=== PATIENT | male | born 1955 | race Caucasian/White ===

== ENCOUNTER 2020-07-04 13:41 | Inpatient (IN) | payer OTHER ==
[2020-07-04] MEDS ORDERED: NA CHLORIDE 0.9% 500 ML ONE (14:00)
[2020-07-04] MEDS ORDERED: FENTANYL CITR 100 MCG/2 ML ONE ×3 (14:00→18:45)
[2020-07-04] MEDS ORDERED: ONDANSETRON 4 MG/2 ML VIAL ONE (14:00)
[2020-07-04 14:02] LABS: Absolute Lymphocytes (CBC) 1.9 K/uL (0.7-4.9); Basophils % 0.6 % (0-1.3); Hematocrit 45.2 % (39.6-49.0); MPV 8.9 fL (7.6-11.3); RBC Red Blood Cell Count 4.42 M/uL (4.33-5.43)
[2020-07-04 14:04] LABS: Protime INR 1.18
[2020-07-04 14:21] LABS: ALT/SGPT 131 U/L (12-78); AST/SGOT 166 U/L (15-37); Albumin 3.8 g/dL (3.4-5.0); Alkaline Phosphatase 87 U/L (45-117); BUN Blood Urea Nitrogen 6 mg/dL (7-18); Bicarbonate 23 mmol/L (21-32); Bilirubin Direct 0.9 mg/dL (0-0.2); Bilirubin Total 2.8 mg/dL (0.2-1.0); Glucose Level 146 mg/dL (74-106); Magnesium 1.8 mg/dL (1.8-2.4); NT PRO-BNP 407 pg/mL (<125); Potassium 3.2 mmol/L (3.5-5.1); Protein, Total 7.1 g/dL (6.4-8.2); Sodium Level 136 mmol/L (136-145); Troponin (Emerg Dept Use Only) < 0.02 ng/mL (0.0-0.045)
--- NOTE | 2020-07-04 14:34 | RAD REPORT ---
EXAM DESCRIPTION: RAD - Chest Single View - 07/04/2020 2:01 pm CLINICAL HISTORY: syncope Chest pain. COMPARISON: Chest Pa And Lat (2 Views) dated 12/26/2018; CHEST PA AND LAT 2 VIEW dated 03/31/2011 FINDINGS: Portable technique limits examination quality. Mild linear subsegmental atelectasis is present left lung base. The lungs are otherwise clear. The he art is normal in size. No displaced fractures.
[2020-07-04] MEDS ORDERED: NA CHLORIDE 0.9% 1,000 ML ONE (14:37)
--- NOTE | 2020-07-04 14:40 | RAD REPORT ---
EXAM DESCRIPTION: CT - CTHCSPWOC - 07/04/2020 2:29 pm CLINICAL HISTORY: Trauma, head and neck injury. syncope;Pain COMPARISON: Angio Aorta For Dissection dated 07/04/2020 TECHNIQUE: Axial 5 mm thick images of the head were obtained. Axial 2 mm thick images of the cervical spine were obtained with sagittal and coronal reconstruction images generated and reviewed. All CT scans are performed using dose optimization technique as appropriate and may include automated exposure control or mA/KV adjustment according to patient size. FINDINGS: CT HEAD WITHOUT CONTRAST: No acute hemorrhage, hydrocephalus or extra-axial collection is identified.Mild generalized brain atr ophy.No areas of brain edema or midline shift. Mild mucoperiosteal thickening in the inferior left maxillary antrum. The paranasal sinuses mastoids are otherwise clear.The calvarium is intact. CT CERVICAL SPINE WITHOUT CONTRAST: No fracture or subluxation.Mild mid and lower cervical degenerative changes.No prevertebral soft tiss ues swelling is identified. IMPRESSION: No acute intracranial or cervical spine findings.
--- NOTE | 2020-07-04 14:47 | RAD REPORT ---
EXAM DESCRIPTION: CT - Angio Aorta For Dissection - 07/04/2020 2:29 pm CLINICAL HISTORY: Chest pain radiating to the back. Low back pain;Abdominal distention COMPARISON: No comparisons TECHNIQUE: CT angiography of the aorta was performed with MIPs. All CT scans are performed using dose optimization technique as appropriate and may include automated exposure control or mA/KV adjustment according to patient size. FINDINGS: A left aortic arch is present with normal branching pattern of the great vessels.No acute aortic finding is seen such as aneurysm, penetrating ulcer or dissection. The celiac axis, SMA, JT and renal arteries are widely patent. No evidence of pulmonary embolism. Mild diffuse COPD is present with linear atelectasis in both lung bases. Diffuse fatty liver.Cholelithiasis.The spleen, pancreas, adrenal glands and kidneys are within normal limits for arterial phase imaging. No bowel obstruction, free fluid or abscess.Normal appendix.No pathologic enlarged lymphadenopathy id entified. Several mild wedge compression deformities are present in spine, including T12, L2 and L4 levels. The se are likely acute to subacute in timeframe. No canal compromise. IMPRESSION: No acute aortic finding is demonstrated. Cholelithiasis. Several mild compression deformities are noted, affecting T12, L2 and L4 levels. Vertebral body heigh t loss is estimated at 15-20% and no canal compromise suspected. These are probably acute or subacute in timeframe.
[2020-07-04] MEDS ORDERED: KCL 20 MEQ/100 mL IVPB 20 MEQ/100 ML BAG IV ONE (16:10)
--- NOTE | 2020-07-04 17:35 | EDPHYS ---
Physician Documentation [facility] Name: Rafa Minaya Age: 64 yrs Sex: Male : 1955 Arrival Date: 07/04/2020 Time: 13:41 Bed 7 Private MD: ED Physician Danny Fisher HPI: 07/04 13:53 This 64 yrs old Male presents to ER via EMS with complaints of Altered Mental kdr Status. 13:53 The patient presents with confusion, decreased mental status, decreased responsiveness. kdr Onset: The symptoms/episode began/occurred at an unknown time. he patient sates that he was at his mothers and went out to his truck at about 12:30 and then does not know what happened. He was found down on all fours on the ground. HE was initially disoriented and HR of 140 at the scene. Was given fluid by EMS and initial VS in ED much better and patient alert and oriented appropriate for age. he appears in moderate distress and is c/o low back pain. His abdomen is firm and diffusely tender, BS diminished. Possible causes: head injury, Aortic dissection. Associated signs and symptoms: Pertinent positives: abdominal pain, confusion, nausea, LOC. Current symptoms: In the emergency department the patient's symptoms have improved, mildly. Patient's baseline: Neuro: alert and fully oriented, Motor: no deficits, Ambulation: walks without assistance. The patient has not experienced similar symptoms in the past. It is unknown whether or not the patient has recently seen a physician. Historical: - Allergies: 13:52 No Known Allergies; tw2 - Home Meds: 13:52 Lumigan 0.01 % ophthalmic drop [Active]; tw2 - PMHx: 13:52 Glaucoma; tw2 - Immunization history:: Adult Immunizations. - Social history:: Smoking status: . ROS: 13:53 Constitutional: Negative for fever, chills, and weight loss, Eyes: Negative for injury, kdr pain, redness, and discharge, ENT: Negative for injury, pain, and discharge, Neck: Negative for injury, pain, and swelling, Cardiovascular: Negative for chest pain, palpitations, and edema, Respiratory: Negative for shortness of breath, cough, wheezing, and pleuritic chest pain, Back: Negative for injury and pain, : Negative for injury, bleeding, discharge, and swelling, MS/Extremity: Negative for injury and deformity, Skin: Negative for injury, rash, and discoloration, Psych: Negative for depression, anxiety, suicide ideation, homicidal ideation, and hallucinations, Allergy/Immunology: Negative for hives, rash, and allergies, Endocrine: Negative for neck swelling, polydipsia, polyuria, polyphagia, and marked weight changes, Hematologic/Lymphatic: Negative for swollen nodes, abnormal bleeding, and unusual bruising. 13:53 Abdomen/GI: Positive for abdominal distension. 13:53 Neuro: Positive for altered mental status, dizziness, loss of consciousness, syncope, weakness. Exam: 13:53 Constitutional: This is a well developed, well nourished patient who is awake, alert, kdr and in moderate distress. Head/Face: Normocephalic, atraumatic. Eyes: Pupils equal round and reactive to light, extra-ocular motions intact. Lids and lashes normal. Conjunctiva and sclera are non-icteric and not injected. Cornea within normal limits. Periorbital areas with no swelling, redness, or edema. Neck: Trachea midline, no thyromegaly or masses palpated, and no cervical lymphadenopathy. Supple, full range of motion without nuchal rigidity, or vertebral point tenderness. No Meningismus. Chest/axilla: Normal chest wall appearance and motion. Nontender with no deformity. No lesions are appreciated. Cardiovascular: Regular rate and rhythm with a normal S1 and S2. No gallops, murmurs, or rubs. Normal PMI, no JVD. No pulse deficits. Respiratory: Lungs have equal breath sounds bilaterally, clear to auscultation and percussion. No rales, rhonchi or wheezes noted. No increased work of breathing, no retractions or nasal flaring. Back: No spinal tenderness. No costovertebral tenderness. Full range of motion. Skin: Warm, dry with normal turgor. Normal color with no rashes, no lesions, and no evidence of cellulitis. MS/ Extremity: Pulses equal, no cyanosis. Neurovascular intact. Full, normal range of motion. Psych: Awake, alert, with orientation to person, place and time. Behavior, mood, and affect are within normal limits. 13:53 Abdomen/GI: Inspection: distension, that is moderate, obese Bowel sounds: diminished, in all quadrants, Palpation: soft, mild abdominal tenderness, in the abdomen diffusely. 19:28 ECG was reviewed by the Attending Physician. kdr Vital Signs: 13:43 BP 116 / 81; Pulse 94; Resp 22; Pulse Ox 100% on 2 lpm NC; Weight 99.79 kg (R); Height hb 6 ft. 2 in. (187.96 cm); Pain 9/10; 13:46 Temp 98.5(O); tw2 15:00 BP 120 / 82; Pulse 102; Resp 18; Pulse Ox 97% ; Pain 5/10; hb 16:04 BP 143 / 97; Pulse 102; Resp 17; Pulse Ox 99% on R/A; hb 17:13 BP 125 / 94; Pulse 95; Resp 24; Pulse Ox 100% on R/A; tw2 18:19 BP 130 / 88; Pulse 92; Resp 15; Pulse Ox 99% on R/A; hb 19:00 BP 136 / 93; Pulse 91; Resp 18; Pulse Ox 100% on 5 lpm NC; ll2 19:37 BP 126 / 71; Pulse 91; Resp 25; Pulse Ox 99% on R/A; Pain 5/10; ll2 13:43 Body Mass Index 28.25 (99.79 kg, 187.96 cm) hb MDM: 17:35 Patient medically screened. kdr 17:35 Data reviewed: vital signs, nurses notes, lab test result(s), radiologic studies. kdr Counseling: I had a detailed discussion with the patient and/or guardian regarding: the historical points, exam findings, and any diagnostic results supporting the discharge/admit diagnosis, lab results, radiology results, the need for further work-up and treatment in the hospital. ED course: Will admit for pain control and syncope evaluation. 07/04 13:43 Order name: Basic Metabolic Panel; Complete Time: 14:49 tw2 07/04 13:43 Order name: CBC with Diff; Complete Time: 14:49 tw2 07/04 13:43 Order name: LFT's; Complete Time: 14:49 tw2 07/04 13:43 Order name: Magnesium; Complete Time: 14:49 tw2 07/04 13:43 Order name: NT PRO-BNP; Complete Time: 14:49 tw2 07/04 13:43 Order name: PT-INR; Complete Time: 14:49 tw2 07/04 13:43 Order name: Troponin (emerg Dept Use Only); Complete Time: 14:49 tw2 07/04 13:43 Order name: XRAY Chest (1 view); Complete Time: 14:49 tw2 07/04 13:49 Order name: CT Aorta for Dissection; Complete Time: 14:49 kdr 07/04 13:50 Order name: CT Head C Spine; Complete Time: 14:49 kdr 07/04 13:51 Order name: ETOH Level; Complete Time: 14:49 kdr 07/04 13:51 Order name: UDS kdr 07/04 13:43 Order name: EKG; Complete Time: 13:43 tw2 07/04 13:43 Order name: Cardiac monitoring; Complete Time: 13:53 tw2 07/04 13:43 Order name: EKG - Nurse/Tech; Complete Time: 14:00 tw07/04 13:43 Order name: IV Saline Lock; Complete Time: 13:54 tw2 07/04 13:43 Order name: Labs collected and sent; Complete Time: 13:54 tw2 07/04 13:43 Order name: O2 Per Protocol; Complete Time: 13:54 tw2 07/04 13:43 Order name: O2 Sat Monitoring; Complete Time: 13:54 tw2 EC:28 Rate is 97 beats/min. Rhythm is regular, Normal Sinus Rhythm with No ectopy. QRS Gates kdr is Normal. AR interval is normal. Clinical impression: Normal ECG. Administered Medications: 13:53 Drug: fentaNYL (PF) 50 mcg Route: IVP; Site: left forearm; hb 14:50 Follow up: Response: No adverse reaction hb 13:53 Drug: Zofran (Ondansetron) 4 mg Route: IVP; Site: left forearm; hb 14:51 Follow up: Response: No adverse reaction hb 13:53 Drug: NS 0.9% 500 ml Route: IV; Rate: bolus; Site: left forearm; hb 14:30 Follow up: Response: No adverse reaction; IV Status: Completed infusion; IV Intake: hb 500ml 14:50 Drug: NS 0.9% 1000 ml Route: IV; Rate: 125 ml/hr; Site: left forearm; hb 14:58 Drug: fentaNYL (PF) 50 mcg Route: IVP; Site: left forearm; hb 15:30 Follow up: Response: No adverse reaction hb 16:14 Drug: Potassium Chloride 20 mEq Route: IV; Rate: calculated rate; Site: left forearm; tw2 18:15 Follow up: Response: No adverse reaction; IV Status: Completed infusion tw2 18:39 Drug: fentaNYL (PF) 50 mcg Route: IVP; Site: left forearm; tw2 19:36 Follow up: Response: No adverse reaction; Pain is decreased; RASS: Alert and Calm (0) ll2 Disposition: 07/04/20 17:35 Hospitalization ordered by Pavan Brown for Observation. Preliminary diagnosis are Altered mental status, unspecified, Wedge compression fracture of unspecified lumbar vertebra - L 2/4, Wedge compression fracture of unspecified thoracic vertebra - T 12. - Bed requested for Telemetry/MedSurg (observation). - Status is Observation. rr5 - Condition is Fair. - Problem is new. - Symptoms have improved. Signatures: Dispatcher [employer] EDCarlee Olmos RN RN dw Danny Fisher MD MD kdr Michelle Guardado RN RN Lisbet Manning RN RN tw2 Pavan Shelby RN RN rr5 Kaylene Faria RN ll2 Corrections: (The following items were deleted from the chart) 20:00 17:35 Hospitalization Ordered by Pavan Brown MD for Observation. Preliminary dw diagnosis is Altered mental status, unspecified; Wedge compression fracture of unspecified lumbar vertebra - L 2/4; Wedge compression fracture of unspecified thoracic vertebra - T 12. Bed requested for Telemetry/MedSurg (observation). Status is Observation. Condition is Fair. Problem is new. Symptoms have improved. kdr 22:22 20:00 07/04/2020 17:35 Hospitalization Ordered by Pavan Brown MD for Observation. rr5 Preliminary diagnosis is Altered mental status, unspecified; Wedge compression fracture of unspecified lumbar vertebra - L 2/4; Wedge compression fracture of unspecified thoracic vertebra - T 12. Bed requested for Telemetry/MedSurg (observation). Status is Observation. Condition is Fair. Problem is new. Symptoms have improved. dw
--- NOTE | 2020-07-04 17:35 | ER ---
Nurse's Notes [facility] Name: Rafa Minaya Age: 64 yrs Sex: Male : 1955 Arrival Date: 07/04/2020 Time: 13:41 Bed 7 Private MD: Diagnosis: Altered mental status, unspecified;Wedge compression fracture of unspecified lumbar vertebra-L 2/4;Wedge compression fracture of unspecified thoracic vertebra-T 12 Presentation: 07/04 13:43 Chief complaint: EMS states: his mother called us and said she seen him go down in the tw2 yard, like just fall, but when we arrived he was on the ground in a side lying position a little disoriented, diaphoretic and soaking wet from sweat, we finally convinced him to come in, initially HR 130's, 89% ra, we started a line gave 100 ml NS, latest vitals was 118/84 88HR, 18, 95% on 2 L nc, now oriented x3. Coronavirus screen: At this time, the client does not indicate any symptoms associated with coronavirus-19. Ebola Screen: Patient denies travel to an Ebola-affected area in the 21 days before illness onset. Initial Sepsis Screen: Does the patient meet any 2 criteria? No. Patient's initial sepsis screen is negative. Does the patient have a suspected source of infection? No. Patient's initial sepsis screen is negative. Risk Assessment: Do you want to hurt yourself or someone else? Patient reports no desire to harm self or others. Onset of symptoms was July 04, 2020. 13:43 Method Of Arrival: EMS: [facility] tw2 13:43 Acuity: NORMAN 2 hb 13:50 Note pt did have episode of incontinence of urine prior to our arrival. tw2 Triage Assessment: 13:49 General: Appears uncomfortable, Behavior is calm, cooperative, appropriate for age. tw2 Pain: Complains of pain in left low back. Neuro: Level of Consciousness is awake, alert, obeys commands, Oriented to person, place, situation. Cardiovascular:. Derm: Skin is diaphoretic. Historical: - Allergies: 13:52 No Known Allergies; tw2 - Home Meds: 13:52 Lumigan 0.01 % ophthalmic drop [Active]; tw2 - PMHx: 13:52 Glaucoma; tw2 - Immunization history:: Adult Immunizations. - Social history:: Smoking status: . Screenin:52 Abuse screen: Denies threats or abuse. Nutritional screening: No deficits noted. tw2 Tuberculosis screening: No symptoms or risk factors identified. Fall Risk None identified. Assessment: 14:00 General: Appears in no apparent distress. uncomfortable, Behavior is cooperative, hb anxious, restless. Pain: Pain currently is 9 out of 10 on a pain scale. Neuro: Level of Consciousness is awake, alert, obeys commands, Oriented to person, place, time, situation. Cardiovascular: Capillary refill < 3 seconds Rhythm is sinus tachycardia. Respiratory: Respiratory effort is even, unlabored, Respiratory pattern is regular, symmetrical. GI: No signs and/or symptoms were reported involving the gastrointestinal system. : No signs and/or symptoms were reported regarding the genitourinary system. EENT: No signs and/or symptoms were reported regarding the EENT system. Derm: Skin is clammy, Skin is pale, Skin temperature is warm. Musculoskeletal: Reports low back pain that radiates to abdomen. 15:02 Reassessment: Pt grimacing, grunting, holding breath, reports pain 5/10. Dr. Fisher hb notified, repeat fentanyl administered as ordered. 16:04 Reassessment: Patient appears in no apparent distress at this time. Patient and/or hb family updated on plan of care and expected duration. Pain level reassessed. Patient is alert, oriented x 3, equal unlabored respirations, skin warm/dry/pink. 16:14 Reassessment: hospitalist Dr. Tiffany Brown at bedside at this time. tw2 17:14 Reassessment: Patient appears in no apparent distress at this time. Patient and/or tw2 family updated on plan of care and expected duration. Pain level reassessed. Patient is alert, oriented x 3, equal unlabored respirations, skin warm/dry/pink. 18:19 Reassessment: Patient appears in no apparent distress at this time. Patient and/or hb family updated on plan of care and expected duration. Pain level reassessed. Patient is alert, oriented x 3, equal unlabored respirations, skin warm/dry/pink. 18:40 Reassessment: pt c/o lower back pain, Dr. Fisher notified at this time. medicated as tw2 ordered. 19:36 Pain: Pain currently is 5 out of 10 on a pain scale. ll2 Vital Signs: 13:43 BP 116 / 81; Pulse 94; Resp 22; Pulse Ox 100% on 2 lpm NC; Weight 99.79 kg (R); Height hb 6 ft. 2 in. (187.96 cm); Pain 9/10; 13:46 Temp 98.5(O); tw2 15:00 BP 120 / 82; Pulse 102; Resp 18; Pulse Ox 97% ; Pain 5/10; hb 16:04 BP 143 / 97; Pulse 102; Resp 17; Pulse Ox 99% on R/A; hb 17:13 BP 125 / 94; Pulse 95; Resp 24; Pulse Ox 100% on R/A; tw2 18:19 BP 130 / 88; Pulse 92; Resp 15; Pulse Ox 99% on R/A; hb 19:00 BP 136 / 93; Pulse 91; Resp 18; Pulse Ox 100% on 5 lpm NC; ll2 19:37 BP 126 / 71; Pulse 91; Resp 25; Pulse Ox 99% on R/A; Pain 5/10; ll2 13:43 Body Mass Index 28.25 (99.79 kg, 187.96 cm) hb ED Course: 13:41 Patient arrived in ED. hb 13:42 Danny Fisher MD is Attending Physician. kdr 13:42 Placed in gown. Bed in low position. Side rails up X2. radiation monitor on. Pulse ox on. tw2 NIBP on. Warm blanket given. 13:49 Triage completed. tw2 13:49 Arm band placed on. EKG completed in triage. Results shown to MD. tw2 13:50 Inserted saline lock: 20 gauge in left forearm, using aseptic technique. ,using aseptic tw2 technique. AMARA Martinez Blood collected. 13:54 XRAY Chest (1 view) Sent. hb 14:01 XRAY Chest (1 view) In Process Unspecified. EDMS 14:03 Michelle Guardado, AMARA is Primary Nurse. hb 14:08 EKG done, by ED staff, reviewed by Danny Fisher MD. em1 14:29 CT Aorta for Dissection In Process Unspecified. EDMS 14:29 CT Head C Spine In Process Unspecified. EDMS 17:33 Pavan Brown MD is Hospitalizing Provider. kdr 19:10 Report given to AMARA Browne and AMARA Liao. tw2 19:16 Diet: Patient given water. ll2 21:43 No provider procedures requiring assistance completed. Patient admitted, IV remains in rr5 place. intact, No redness/swelling at site. Administered Medications: 13:53 Drug: fentaNYL (PF) 50 mcg Route: IVP; Site: left forearm; hb 14:50 Follow up: Response: No adverse reaction hb 13:53 Drug: Zofran (Ondansetron) 4 mg Route: IVP; Site: left forearm; hb 14:51 Follow up: Response: No adverse reaction hb 13:53 Drug: NS 0.9% 500 ml Route: IV; Rate: bolus; Site: left forearm; hb 14:30 Follow up: Response: No adverse reaction; IV Status: Completed infusion; IV Intake: hb 500ml 14:50 Drug: NS 0.9% 1000 ml Route: IV; Rate: 125 ml/hr; Site: left forearm; hb 14:58 Drug: fentaNYL (PF) 50 mcg Route: IVP; Site: left forearm; hb 15:30 Follow up: Response: No adverse reaction hb 16:14 Drug: Potassium Chloride 20 mEq Route: IV; Rate: calculated rate; Site: left forearm; tw2 18:15 Follow up: Response: No adverse reaction; IV Status: Completed infusion tw2 18:39 Drug: fentaNYL (PF) 50 mcg Route: IVP; Site: left forearm; tw2 19:36 Follow up: Response: No adverse reaction; Pain is decreased; RASS: Alert and Calm (0) ll2 Intake: 14:30 IV: 500ml; Total: 500ml. hb Outcome: 17:35 Decision to Hospitalize by Provider. kdr 21:43 Admitted to Med/surg accompanied by tech, via stretcher, room 222, with oxygen, with rr5 chart, Report called to jenny 21:43 Condition: stable 21:43 Instructed on the need for admit. 22:22 Patient left the ED. rr5 Signatures: Dispatcher [employer] EDMS Danny Fisher MD MD kdr Martinez, Eric em1 Michelle Guardado RN RN hb Lisbet Manning RN RN tw2 Pavan Shelby RN RN rr5 [place], Kaylene, RN RN ll2 Corrections: (The following items were deleted from the chart) 14:06 13:43 BP 116 / 81; Pulse 94bpm; Resp 16bpm; Pulse Ox 100% 2 lpm Nasal Cannula; 99.79 kg hb Reported; Height 6 ft. 2 in.; BMI: 28.2; Pain 9/10; tw2 16:04 13:43 Acuity: NORMAN 3 tw2 hb
--- NOTE | 2020-07-04 19:51 | P.HP ---
Certification for Inpatient Patient admitted to: Observation With expected LOS: <2 Midnights Practitioner: I am a practitioner with admitting privileges, knowledge of patient current condition, hospital course, and medical plan of care. Services: Services provided to patient in accordance with Admission requirements found in Title 42 Section 412.3 of the Code of Federal Regulations Patient History Date of Service: 07/04/20 Reason for admission: syncope History of Present Illness: 64yo male with PMH: glaucoma, was brought to ED by EMS after syncopal episode. Patient was at family members house visiting, and had syncopal episode shortly after getting in his truck to leave. He believes he was passed out in the truck for 30min to 1 hours, woke soaked in his sweat. Truck was outside in the heat, and he had not turned it on yet. No prodromal symptoms, no palpitations, no chest pain, did not lose bowel/bladder control, no weakness/numbness/tingling, he did bite his lower lip. He states next thing he remembers he was on ground beside truck surrounding by EMS and his mother. He was having severe lower back pain, he believes he fell from his truck / was dropped when someone tried to open the door when he was passed out. No history of prior syncope. Does have remote episode of seizure x1 when he was "very dehydrated" many many years ago. Back pain is located "~4-6 inches above belt line, on both sides", very sharp, 5/10 after fentanyl. He states nearly 2-3 weeks ago he sprayed ~5gallons of herbicide without a mask/respirator and the wind occasionally blew the mist towards him. Since then, he has been feeling very fatigued, with intermittent chills, and decreased PO intake. In the ED, CT head: negative, CT thoracic aneurysm: Several mild compression d eformities are noted, affecting T12, L2 and L4 levels. Vertebral body height loss is estimated at 15-20% and no canal compromise suspected. These are probably acute or subacute in timeframe. CXR: mild atelectasis, EKG: sinus Allergies No Known Allergies Allergy (Unverified 07/04/20 18:33) - Past Medical/Surgical History -: Glaucoma -: Inguinal hernia -: L knee - meniscus repair - Family History father -: Heart disease (CHF) - Social History Smoking Status: Former smoker Alcohol use: Yes Caffeine use: Yes Place of Residence: Home Review of Systems General: Chills, Weakness Eyes: Unremarkable ENT: Unremarkable Respiratory: Unremarkable Cardiovascular: Unremarkable Gastrointestinal: Unremarkable Genitourinary: Unremarkable Musculoskeletal: Back Pain Integumentary: Unremarkable Neurological: As per HPI Physical Examination - Physical Exam General: Alert, Mild distress (in pain) HEENT: Atraumatic, PERRLA, EOMI Neck: Supple, No LAD Respiratory: Clear to auscultation bilaterally, Normal air movement Cardiovascular: No edema, Regular rate/rhythm, Normal S1 S2 Gastrointestinal: Normal bowel sounds, Soft and benign, Non-distended, No tenderness Musculoskeletal: Other (no tenderness on palpation of lower back) Integumentary: No rashes, No breakdown Neurological: Normal speech, Normal strength at 5/5 x4 extr (lower extremity exam limited due to back pain with movement), Sensation intact, Cranial nerves 3-12 intact, Normal affect - Studies Laboratory Data (last 24 hrs) 07/04/20 13:45: PT 13.9 H, INR 1.18 07/04/20 13:45: WBC 9.7, Hgb 15.8, Hct 45.2, Plt Count 143 L 07/04/20 13:45: Sodium 136, Potassium 3.2 L, BUN 6 L, Creatinine 1.58 H, Glucose 146 H, Magnesium 1.8, Total Bilirubin 2.8 H, AST 166 H, ALT 131 H, Alkaline Phosphatase 87 Assessment and Plan - Plan Syncope Back pain - compression fractures Glaucoma Syncope -unclear etiology, possibly in setting of dehydration -likely with herbicide toxicity 2-3 weeks ago that made him feel ill over the past 2-3 weeks, unlikely cause of syncope this far out, but likely contributed via decreased PO intake -CT brain negative -no prodrome, no palpitations, non-exertional -will monitor on telemetry -IVF at 175 ml/hr overnight -TTE ordered -unable to perform orthostatics secondary to pain -remote h/o seizure but this episode doesn't seem seizure-like Back pain, Compression fractures -appear acute/subacute on CT -likely from fall from truck -neuro exam normal -pain control with norco & morphine for now, adjust as needed Glaucoma -continue home eye drops Dispo: anticipate discharge tomorrow if pain controlled and pending syncope workup - - Advance Directives Does patient have a Living Will: No Does patient have a Durable POA for Healthcare: No - Code Status/Comfort Care Code Status: Full Code Time Spent Managing Pts Care (In Minutes): 55
[2020-07-04] MEDS ORDERED: ONDANSETRON 4 MG/2 ML VIAL IV PRN (22:39)
[2020-07-04] MEDS: NA CHLORIDE 0.9% 1,000 ML IV SCH (23:04)
[2020-07-04 23:19] LABS: Thyroid Stimulating Hormone 0.742 uIU/mL (0.360-3.740); Troponin I < 0.02 ng/mL (0.0-0.045)
[2020-07-04 23:25] VITALS: BMI 28.2
[2020-07-04] MEDS: MORPHINE 4 MG/ML SYR IV PRN (23:44)
[2020-07-05] MEDS: HYDROCODONE/APAP 10/325 TAB PO PRN ×4 (02:08→23:36)
[2020-07-05 03:21] LABS: Urine Appearance CLEAR; Urine Blood NEGATIVE (NEG); Urine Color DK YELLOW; Urine Glucose NEGATIVE (NEG); Urine Protein TRACE (NEG); Urine Specific Gravity >=1.030 (1.005-1.030)
[2020-07-05 03:30] LABS: Urine Microscopic Reflex ORDER UMIC
[2020-07-05 03:31] LABS: Barbiturates NEGATIVE (NEGATIVE); Benzodiazepines NEGATIVE (NEGATIVE); Cocaine NEGATIVE (NEGATIVE); METHAMPHETAM NEGATIVE (NEGATIVE); Methadone NEGATIVE (NEGATIVE); Opiates POSITIVE (NEGATIVE); Phencyclidine NEGATIVE (NEGATIVE); THC Cannibis NEGATIVE (NEGATIVE)
[2020-07-05 03:48] LABS: Urine Bacteria >50 /HPF (NONE SEEN); Urine Culture Reflex Order REFLEXED; Urine RBC <5 /HPF (NONE SEEN)
[2020-07-05 04:06] LABS: Urine Bilirubin 2+ (NEG)
[2020-07-05] MEDS: NA CHLORIDE 0.9% 1,000 ML IV SCH ×5 (04:55→23:36)
[2020-07-05 05:01] LABS: Albumin 3.2 g/dL (3.4-5.0); Magnesium 1.9 mg/dL (1.8-2.4); Potassium 3.6 mmol/L (3.5-5.1); Protein, Total 6.2 g/dL (6.4-8.2)
[2020-07-05 05:14] LABS: Absolute Lymphocytes (CBC) 0.7 K/uL (0.7-4.9); Basophils % 0.3 % (0-1.3); Hematocrit 39.2 % (39.6-49.0); Lymphocytes % 9.4 % (15.3-44.8); MPV 8.7 fL (7.6-11.3); RBC Red Blood Cell Count 3.79 M/uL (4.33-5.43)
--- NOTE | 2020-07-05 05:47 | EKG ---
Test Date: 2020-07-04 Test Time: 13:59:36 Email Engineer: MENG MEASUREMENT RESULTS: Intervals: Rate: 97 IA: 146 QRSD: 86 QT: 364 QTc: 462 [place]: P: 63 IA: 146 QRS: 56 T: 41 INTERPRETIVE STATEMENTS: Normal sinus rhythm Normal ECG Compared to ECG 04/08/2011 12:05:42 No significant changes Electronically Signed On 07-05-20 05:45:19 CDT by Kulwant Cárdenas
[2020-07-05] MEDS: MORPHINE 4 MG/ML SYR IV PRN ×2 (06:41→10:21)
[2020-07-05 09:50] LABS: Urine White Blood Cell Casts OK
[2020-07-05 09:51] LABS: Blood Morphology Comment NOT SEEN (NOT SEEN); Platelet Estimate DECR
--- NOTE | 2020-07-05 10:11 | P.PN ---
Subjective Date of Service: 07/05/20 Chief Complaint: syncope Subjective: No new changes Review of Systems 10-point ROS is otherwise unremarkable Physical Examination - Vital Signs Temperature: 97.0 F Blood Pressure: 125/67 Pulse: 70 Respirations: 14 Pulse Ox (%): 99 - Physical Exam General: Alert, In no apparent distress HEENT: Atraumatic, Normocephalic Neck: Supple, 2+ carotid pulse no bruit Respiratory: Clear to auscultation bilaterally Cardiovascular: Normal pulses, Regular rate/rhythm Capillary refill: <2 Seconds Gastrointestinal: Soft and benign, W/out hepatosplenomegaly Musculoskeletal: No clubbing, No swelling Integumentary: No rashes Neurological: Normal speech, Other (Intractable back pain) Lymphatics: No axilla or inguinal lymphadenopathy - Studies Laboratory Data (last 24 hrs) 07/04/20 13:45: PT 13.9 H, INR 1.18 07/04/20 13:45: WBC 9.7, Hgb 15.8, Hct 45.2, Plt Count 143 L 07/04/20 13:45: Sodium 136, Potassium 3.2 L, BUN 6 L, Creatinine 1.58 H, Glucose 146 H, Magnesium 1.8, Total Bilirubin 2.8 H, AST 166 H, ALT 131 H, Alkaline Phosphatase 87 Assessment & Plan Physician Review Additional Text: Syncope Back pain - compression fractures Glaucoma Syncope possibly in setting of dehydration Likely with herbicide toxicity 2-3 weeks ago that made him feel ill over the past 2-[address] brain negative No prodrome, no palpitations, non-exertional Monitor on telemetry Syncopal Work up remote h/o seizure Need follow up with neurology as outpatient Back pain, Compression fractures Appear acute/subacute on CT likely from fall from truck neuro exam normal pain control with norco & morphine for now, adjust as needed Physical therapy evaluation Glaucoma -continue home eye drops Time Spent Managing Pts Care (In Minutes): 43
[2020-07-05] MEDS: IBUPROFEN 600 MG TAB PO SCH ×2 (11:30→17:44)
[2020-07-06] MEDS: IBUPROFEN 600 MG TAB PO SCH ×3 (00:04→11:53)
[2020-07-06] MEDS: NA CHLORIDE 0.9% 1,000 ML IV SCH ×2 (04:51→07:58)
[2020-07-06] MEDS: HYDROCODONE/APAP 10/325 TAB PO PRN (07:57)
[2020-07-06 09:20] VITALS: O2SAT 98
[2020-07-06 10:37] VITALS: BP 154/91; TEMP 97
--- NOTE | 2020-07-06 10:46 | P.DS ---
Admission Date: 07/05/20 Discharge Date: 07/06/20 Disposition: ROUTINE DISCHARGE Discharge Condition: GOOD Reason for Admission: syncope Brief History of Present Illness: 64yo male with PMH: glaucoma, was brought to ED by EMS after syncopal episode. Patient was at family members house visiting, and had syncopal episode shortly after getting in his truck to leave. He believes he was passed out in the truck for 30min to 1 hours, woke soaked in his sweat. Truck was outside in the heat, and he had not turned it on yet. No prodromal symptoms, no palpitations, no chest pain, did not lose bowel/bladder control, no weakness/numbness/tingling, he did bite his lower lip. He states next thing he remembers he was on ground beside truck surrounding by EMS and his mother. He was having severe lower back pain, he believes he fell from his truck / was dropped when someone tried to open the door when he was passed out. No history of prior syncope. Does have remote episode of seizure x1 when he was "very dehydrated" many many years ago. Back pain is located "~4-6 inches above belt line, on both sides", very sharp, 5/10 after fentanyl. He states nearly 2-3 weeks ago he sprayed ~5gallons of herbicide without a mask/respirator and the wind occasionally blew the mist towards him. Since then, he has been feeling very fatigued, with intermittent chills, and decreased PO intake. In the ED, CT head: negative, CT thoracic aneurysm: Several mild compression deformities are noted, affecting T12, L2 and L4 levels. Vertebral body height loss is estimated at 15-20% and no canal compromise suspected. These are probably acute or subacute in timeframe. CXR: mild atelectasis, EKG: sinus Hospital Course: Syncope Back pain - compression fractures Glaucoma The patient was admitted and was monitored closely under telemetry. Will start on aggressive hydration. patient had a syncopal workup which was grossly negative Syncope possibly induced by dehydration and Likely with herbicide toxicity 2-3 weeks ago that made him feel ill over the past 2-[address] brain negative Patient had remote history of seizure, but no signs of any seizure activity this episode adviced about neurology consult but the patient want to follow up as outpatient Back pain, Compression fractures Appear acute/subacute on CT likely from fall from truck neuro exam normal pain control with norco & morphine for now, adjust as needed Physical therapy evaluation was done Patient wanted go home and is being discharged home today in a stable condition with advice to follow up with PCP in 1 week and also with orthopedics and neurology as outpatient Vital Signs/Physical Exam: Temp Pulse Resp BP Pulse Ox 97.0 F 102 H 18 154/91 H 98 07/06/20 08:00 07/06/20 08:00 07/06/20 08:57 07/06/20 08:00 07/06/20 08:57 General: Alert, In no apparent distress HEENT: Atraumatic, Normocephalic Neck: Supple Respiratory: Clear to auscultation bilaterally Cardiovascular: Regular rate/rhythm, Normal S1 S2 Capillary refill: <2 Seconds Gastrointestinal: Soft and benign, W/out hepatosplenomegaly Musculoskeletal: Other (Back Pain,Ambulating with PT) Integumentary: No rashes Neurological: Normal speech, Normal strength at 5/5 x4 extr Lymphatics: No axilla or inguinal lymphadenopathy Laboratory Data at Discharge: WBC 7.4 K/uL (4.3-10.9) D 07/05/20 04:18 Hgb 13.5 g/dL (13.6-17.9) L 07/05/20 04:18 Hct 39.2 % (39.6-49.0) L 07/05/20 04:18 Plt Count 85 K/uL (152-406) L D 07/05/20 04:18 PT 13.9 SECONDS (9.5-12.5) H 07/04/20 13:45 INR 1.18 07/04/20 13:45 Sodium 140 mmol/L (136-145) 07/05/20 04:18 Potassium 3.6 mmol/L (3.5-5.1) 07/05/20 04:18 BUN 7 mg/dL (7-18) 07/05/20 04:18 Creatinine 0.87 mg/dL (0.55-1.3) 07/05/20 04:18 Glucose 106 mg/dL (74-106) 07/05/20 04:18 Magnesium 1.9 mg/dL (1.8-2.4) 07/05/20 04:18 Total Bilirubin 2.0 mg/dL (0.2-1.0) H 07/05/20 04:18 AST 115 U/L (15-37) H 07/05/20 04:18 ALT 93 U/L (12-78) H 07/05/20 04:18 Alkaline Phosphatase 60 U/L (45-117) 07/05/20 04:18 Troponin I < 0.02 ng/mL (0.0-0.045) 07/04/20 22:44 Triglycerides 320 mg/dL (<150) H 07/05/20 04:18 Cholesterol 118 mg/dL (<200) 07/05/20 04:18 HDL Cholesterol 21 mg/dL (40-60) L 07/05/20 04:18 Cholesterol/HDL Ratio 5.62 07/05/20 04:18 Home Medications: Bimatoprost [Lumigan Opthalmic Drops*] 1 drop EACH EYE BEDTIME 07/05/20 Codeine/APAP [Tylenol W/Codeine #3 tab] 1 tab PO Q6HP PRN #14 tab 07/06/20 Cyclobenzaprine HCl [Flexeril] 5 mg PO Q12H PRN #20 tablet 07/06/20 Ibuprofen [Motrin] 600 mg PO Q8HR #30 tab 07/06/20 Pantoprazole [Protonix Tab*] 40 mg PO DAILY #10 tab 07/06/20 New Medications: Cyclobenzaprine HCl [Flexeril] 5 mg PO Q12H PRN #20 tablet PRN Reason: Muscle Spasms Ibuprofen [Motrin] 600 mg PO Q8HR #30 tab Pantoprazole [Protonix Tab*] 40 mg PO DAILY #10 tab Codeine/APAP [Tylenol W/Codeine #3 tab] 1 tab PO Q6HP PRN #14 tab PRN Reason: Pain Diet: AHA Activity: Ad oscar Followup: Gilmar Eaton MD [ASSOCIATE-ACTIVE - CAN ADMIT] - (Call to make an appointment. ) Time spent managing pt's care (in minutes): 42
== END 2020-07-06 12:30 | disposition home or self-care (01) | DRG 641 ==
LOC: ER 13:41 → ERHOLD 17:42 → 2ND 21:41 → OBSVTOIN 07-05 22:12
PROVIDERS: ADMIT Hospitalist; ATTEND Family Medicine
DX: E86.0 Dehydration (principal); S22.088A Other fracture of T11-T12 vertebra, initial encounter for closed fracture; S32.028A Other fracture of second lumbar vertebra, initial encounter for closed fracture; S32.048A Other fracture of fourth lumbar vertebra, initial encounter for closed fracture; W17.89XA Other fall from one level to another, initial encounter; H40.9 Unspecified glaucoma; T65.891A Toxic effect of other specified substances, accidental (unintentional), initial encounter; R55 Syncope and collapse
CPT/HCPCS: 36415; 70450; 71045; 71275; 72125; 74175; 80048; 80053; 80061; 80076; 80307; 80320; 81003; 81015; 83735; 83880; 84443; 84484; 85025; 85610; 87086; 87088; 93005; 94760; 96361; 96365; 96366; 96375; 97116; 97161; 99285; G0378; J2405; J3010; J3480; J7030; J7040; Q9967; U0003

== ENCOUNTER 2020-07-08 15:08 | Inpatient (IN) | payer OTHER ==
[2020-07-08 15:53] LABS: Absolute Lymphocytes (CBC) 0.9 K/uL (0.7-4.9); Hematocrit 38.6 % (39.6-49.0); Lymphocytes % 13.2 % (15.3-44.8); MPV 8.2 fL (7.6-11.3); RBC Red Blood Cell Count 3.79 M/uL (4.33-5.43)
[2020-07-08 16:16] LABS: ALT/SGPT 57 U/L (12-78); AST/SGOT 66 U/L (15-37); Albumin 3.2 g/dL (3.4-5.0); Alkaline Phosphatase 64 U/L (45-117); BUN Blood Urea Nitrogen 10 mg/dL (7-18); Bicarbonate 26 mmol/L (21-32); Bilirubin Direct 0.8 mg/dL (0-0.2); Bilirubin Total 1.5 mg/dL (0.2-1.0); Glucose Level 94 mg/dL (74-106); Lipase 68 U/L (73-393); Protein, Total 6.6 g/dL (6.4-8.2); Sodium Level 132 mmol/L (136-145)
[2020-07-08] MEDS ORDERED: NA CHLORIDE 0.9% 1,000 ML ONE (16:17)
[2020-07-08] MEDS ORDERED: FLEET ENEMA ADULT PR ONE (16:17)
[2020-07-08 16:20] LABS: Potassium 2.7 mmol/L (3.5-5.1)
--- NOTE | 2020-07-08 16:22 | RAD REPORT ---
EXAM DESCRIPTION: CTAbdomen Pelvis W Contrast - 07/08/2020 4:03 pm CLINICAL HISTORY: Abdominal pain. Abdominal distention;Constipation COMPARISON: Angio Aorta For Dissection dated 07/04/2020 TECHNIQUE: Biphasic CT imaging of the abdomen and pelvis was performed with 100 ml non-ionic IV cont rast. All CT scans are performed using dose optimization technique as appropriate and may include automated exposure control or mA/KV adjustment according to patient size. FINDINGS: Mild linear atelectasis is present in the right lung base. Diffuse fatty liver is present. Several gallstones are present the dependent portion gallbladder. The spleen pancreas, adrenal glands and kidneys show process. Distention of the cecum, ascending and transverse colon is moderately distended with fluid and air. M ild free fluid is seen in the pelvis superior to the urinary bladder. An obstructing mass is not iden tified. Some evidence of retained stool is seen in descending colon. No free air. Normal appendix. Si gmoid diverticular present. No evidence of significant lymphadenopathy. No suspicious bony findings. IMPRESSION: Gaseous and fluid distention of the cecum, ascending and transverse colon is seen. This may be related to some fecal retention in the region of the descending colon. Obstructing mass is not identified. Advanced fatty liver with cholelithiasis is present.
[2020-07-08] MEDS ORDERED: KCL 20 MEQ/100 mL IVPB 20 MEQ/100 ML BAG IV ONE (16:37)
[2020-07-08 17:00] LABS: Blood Morphology Comment NOT SEEN (NOT SEEN); Platelet Estimate DECR
--- NOTE | 2020-07-08 17:20 | EDPHYS ---
Physician Documentation [facility] Name: Rafa Minaya Age: 64 yrs Sex: Male : 1955 Arrival Date: 07/08/2020 Time: 15:12 Bed 5 Private MD: Juancarlos Scott H ED Physician James Brown HPI: 07/08 15:44 This 64 yrs old Male presents to ER via Ambulatory with complaints of rn Constipation. 15:44 The patient presents with abdominal pain. rn 15:44 Onset: The symptoms/episode began/occurred 4 day(s) ago. The symptoms do not radiate. rn Modifying factors: The symptoms are alleviated by nothing, the symptoms are aggravated by touching the area. Severity of pain: At its worst the pain was moderate in the emergency department the pain is unchanged. The patient has not experienced similar symptoms in the past. The patient has been recently been admitted at [facility]. Reports admitted recently to hospital for heat exhaustion and dehydration, given lots of fluids, felt better, states began with abd pain and distension during hospitalization, has not gotten better, tried laxative and one enema, only small amount of output, no fever/trauma/vomiting. Last BM several days ago. . Historical: - Allergies: 15:21 No Known Allergies; iw - Home Meds: 15:21 Lumigan 0.01 % ophthalmic drop [Active]; iw - PMHx: 15:21 Glaucoma; iw - PSHx: 15:21 Hernia repair; Knee surgery; iw - Immunization history:: Adult Immunizations. - Social history:: Smoking status: Patient denies any tobacco usage or history of. - Family history:: not pertinent. - Hospitalizations: : The patient was recently seen at [facility]. ROS: 15:44 Constitutional: Negative for fever, chills, and weight loss, Cardiovascular: Negative rn for chest pain, palpitations, and edema, Respiratory: Negative for shortness of breath, cough, wheezing, and pleuritic chest pain, Abdomen/GI: + abd pain and constipation Back: Negative for injury and pain, MS/Extremity: Negative for injury and deformity, Skin: Negative for injury, rash, and discoloration, Neuro: Negative for headache, weakness, numbness, tingling, and seizure. Exam: 15:44 Constitutional: This is a well developed, well nourished patient who is awake, alert, rn appears uncomfortable, but ambulatory to room without assistance. Head/Face: Normocephalic, atraumatic. Cardiovascular: Regular rate and rhythm. No pulse deficits. Respiratory: No increased work of breathing, no retractions or nasal flaring. Abdomen/GI: soft, + distended, firm RLQ Skin: Warm, dry MS/ Extremity: Pulses equal, no cyanosis. Neuro: Awake and alert, GCS 15 Vital Signs: 15:18 BP 150 / 110; Pulse 91; Resp 18 S; Temp 98.3; Pulse Ox 98% on R/A; Weight 99.79 kg; iw Height 6 ft. 2 in. (187.96 cm); Pain 9/10; 16:00 rb1 17:15 BP 124 / 83; Pulse 84; Resp 17; Pulse Ox 97% ; rb1 18:15 BP 130 / 89; Pulse 80; Resp 18; Pulse Ox 95% on R/A; rb1 19:18 BP 133 / 91; Pulse 78; Resp 17; Temp 98.3(O); Pulse Ox 96% ; Pain 8/10; mt2 20:10 BP 138 / 96; Pulse 89; Resp 16; Pulse Ox 96% ; Pain 6/10; mt2 15:18 Body Mass Index 28.25 (99.79 kg, 187.96 cm) iw 16:[address] rb1 MDM: 15:22 Patient medically screened. rn 17:17 Differential diagnosis: bowel obstruction, constipation, high impaction, dehydration, rn 2/2 pain medication administration. Data reviewed: vital signs, nurses notes, lab test result(s), radiologic studies, CT scan, and as a result, I will admit patient. Counseling: I had a detailed discussion with the patient and/or guardian regarding: the historical points, exam findings, and any diagnostic results supporting the discharge/admit diagnosis, lab results, radiology results, the need for further work-up and treatment in the hospital. Response to treatment: the patient's symptoms have mildly improved after treatment, and as a result, I will admit patient. Admission orders: after a detailed discussion of the patient's condition and case, the admit orders are written by me. ED course: Pt with signs of high impaction/fecal retention, likely complicated by dehdyration and recent IV and PO pain medication, + gaseous and fluid distension of colon, not helped with laxative and enema at home, no definitive obstruction or surgical intervention at this time, will admit to hospitalist service for fluids and bowel regimen. . 17:30 ED course: Consulted Dr. Parisi, recommends tap water enemas and electrolyte rn replacement, can add mineral oil if needed. . 07/08 15:43 Order name: Basic Metabolic Panel; Complete Time: 16:45 rn 07/08 15:43 Order name: CBC with Diff; Complete Time: 17:30 rn 07/08 15:43 Order name: Hepatic Function; Complete Time: 16:45 rn 07/08 15:43 Order name: Lipase; Complete Time: 16:45 rn 07/08 15:43 Order name: CT Abd/Pelvis - IV Contrast Only; Complete Time: 16:45 rn 07/08 15:59 Order name: Manual Differential; Complete Time: 17:30 EDMS 07/08 15:43 Order name: IV Saline Lock; Complete Time: 15:51 rn 07/08 15:43 Order name: Labs collected and sent; Complete Time: 15:51 rn Administered Medications: 16:19 Drug: Fleet Enema 133 ml Route: CA; rb1 19:06 Follow up: Response: No adverse reaction; Pain is decreased mt2 17:00 Drug: NS 0.9% 1000 ml {Note: Pt. was in the restroom due to the Fleet Enema.} Route: rb1 IV; Rate: 1000 ml; Site: left antecubital; 19:06 Follow up: Response: No adverse reaction; IV Status: Completed infusion mt2 17:00 Drug: Potassium Chloride 20 mEq Route: IV; Rate: calculated rate; Site: left rb1 antecubital; 19:07 Follow up: Response: No adverse reaction mt2 19:20 Follow up: IV Status: Completed infusion mt2 17:31 Drug: Magnesium Citrate Liquid 300 ml Route: PO; rb1 19:07 Follow up: Response: No adverse reaction; Pain is decreased mt2 Disposition: 07/08/20 17:19 Hospitalization ordered by Pavan Brown for Observation. Preliminary diagnosis are Fecal impaction, Unspecified abdominal pain. - Bed requested for Telemetry/MedSurg (observation). - Status is Observation. ea - Condition is Stable. - Problem is new. - Symptoms are unchanged. Signatures: Dispatcher [employer] EDCarlee Olmos RN Sasha Schaffer, RN James Taylor MD MD rn Barber, Rebecca, RN Heather Vaca RN Jannet Velazco ea, RN mt2 Corrections: (The following items were deleted from the chart) 19:49 17:19 Hospitalization Ordered by Pavan Brown MD for Observation. Preliminary dw diagnosis is Fecal impaction; Unspecified abdominal pain. Bed requested for Telemetry/MedSurg (observation). Status is Observation. Condition is Stable. Problem is new. Symptoms are unchanged. rn 20:40 19:49 07/08/2020 17:19 Hospitalization Ordered by Pavan Brown MD for Observation. [email or web address] Preliminary diagnosis is Fecal impaction; Unspecified abdominal pain. Bed requested for Telemetry/MedSurg (observation). Status is Observation. Condition is Stable. Problem is new. Symptoms are unchanged. dw
--- NOTE | 2020-07-08 17:20 | ER ---
Nurse's Notes [facility] Name: Rafa Minaya Age: 64 yrs Sex: Male : 1955 Arrival Date: 07/08/2020 Time: 15:12 Bed 5 Private MD: Juancarlos Scott H Diagnosis: Fecal impaction;Unspecified abdominal pain Presentation: 07/08 15:18 Chief complaint: Patient states: constipated since , feels very full and is iw having a hard time breathing, had laxatives and enema with no relief. Coronavirus screen: At this time, the client does not indicate any symptoms associated with coronavirus-19. Ebola Screen: Patient negative for fever greater than or equal to 101.5 degrees Fahrenheit, and additional compatible Ebola Virus Disease symptoms Patient denies exposure to infectious person. Patient denies travel to an Ebola-affected area in the 21 days before illness onset. No symptoms or risks identified at this time. Initial Sepsis Screen: Does the patient meet any 2 criteria? No. Patient's initial sepsis screen is negative. Does the patient have a suspected source of infection? No. Patient's initial sepsis screen is negative. Risk Assessment: Do you want to hurt yourself or someone else? Patient reports no desire to harm self or others. Onset of symptoms was August 04, 2020. 15:18 Method Of Arrival: Ambulatory iw 15:18 Acuity: NORMAN 3 iw Historical: - Allergies: 15:21 No Known Allergies; iw - Home Meds: 15:21 Lumigan 0.01 % ophthalmic drop [Active]; iw - PMHx: 15:21 Glaucoma; iw - PSHx: 15:21 Hernia repair; Knee surgery; iw - Immunization history:: Adult Immunizations. - Social history:: Smoking status: Patient denies any tobacco usage or history of. - Family history:: not pertinent. - Hospitalizations: : The patient was recently seen at [facility]. Screenin:25 Abuse screen: Denies threats or abuse. Nutritional screening: No deficits noted. rb1 Tuberculosis screening: No symptoms or risk factors identified. Fall Risk None identified. Assessment: 15:25 General: Appears uncomfortable, Behavior is calm, cooperative. Pain: Complains of pain rb1 in abdomen Pain currently is 9 out of 10 on a pain scale. Neuro: Level of Consciousness is awake, alert, obeys commands, Oriented to person, place, time, situation. Cardiovascular: Capillary refill < 3 seconds. Respiratory: Reports shortness of breath Pt. reports it is due to his abdomen being so distended Airway is patent Respiratory effort is even, unlabored, Respiratory pattern is regular, symmetrical. GI: Abdomen is distended, Last BM was July 02, 2020. Abd is rigid X 4 quads. : No signs and/or symptoms were reported regarding the genitourinary system. Derm: Skin is pink, warm \T\ dry. 16:46 Reassessment: Pt. is in the restroom due to the Fleet Enema. rb1 17:25 Reassessment: Patient appears in no apparent distress at this time. Patient and/or rb1 family updated on plan of care and expected duration. Pain level reassessed. Patient is alert, oriented x 3, equal unlabored respirations, skin warm/dry/pink. 18:25 Reassessment: Patient appears in no apparent distress at this time. Pt. is watching TV. rb1 19:18 Reassessment: Patient and/or family updated on plan of care and expected duration. Pain mt2 level reassessed. Patient is alert, oriented x 3, equal unlabored respirations, skin warm/dry/pink. General: Appears uncomfortable, Behavior is restless. Pain: Complains of pain in abdomen Pain currently is 8 out of 10 on a pain scale. GI: Abdomen is round distended, Bowel sounds hypoactive in right upper quadrant and left upper quadrant. EENT: No deficits noted. Musculoskeletal: No deficits noted. 20:09 Reassessment: Patient and/or family updated on plan of care and expected duration. Pain mt2 level reassessed. Patient is alert, oriented x 3, equal unlabored respirations, skin warm/dry/pink. General: Appears uncomfortable, Behavior is cooperative. Pain: Complains of pain in abdomen Pain currently is 6 out of 10 on a pain scale. Vital Signs: 15:18 BP 150 / 110; Pulse 91; Resp 18 S; Temp 98.3; Pulse Ox 98% on R/A; Weight 99.79 kg; iw Height 6 ft. 2 in. (187.96 cm); Pain 9/10; 16:00 rb1 17:15 BP 124 / 83; Pulse 84; Resp 17; Pulse Ox 97% ; rb1 18:15 BP 130 / 89; Pulse 80; Resp 18; Pulse Ox 95% on R/A; rb1 19:18 BP 133 / 91; Pulse 78; Resp 17; Temp 98.3(O); Pulse Ox 96% ; Pain 8/10; mt2 20:10 BP 138 / 96; Pulse 89; Resp 16; Pulse Ox 96% ; Pain 6/10; mt2 15:18 Body Mass Index 28.25 (99.79 kg, 187.96 cm) iw 16:[address] rb1 ED Course: 15:12 Patient arrived in ED. mr 15:12 Juancarlos Scott DO is Private Physician. mr 15:21 Triage completed. iw 15:22 James Brown MD is Attending Physician. rn 15:25 Patient has correct armband on for positive identification. Placed in gown. Bed in low rb1 position. Call light in reach. Side rails up X 1. Pulse ox on. NIBP on. Warm blanket given. 15:25 Arm band placed on right wrist. rb1 15:28 Daniella Whitman, RN is Primary Nurse. rb1 15:46 Initial lab(s) drawn, by ks, sent to lab. Inserted saline lock: 22 gauge in left kj1 antecubital area, using aseptic technique. Blood collected. 16:03 CT Abd/Pelvis - IV Contrast Only In Process Unspecified. EDMS 17:19 Pavan Brown MD is Hospitalizing Provider. rn 19:30 Primary Nurse role handed off by Daniella Whitman RN mt2 19:30 Jannet Zheng RN is Primary Nurse. mt2 20:14 No provider procedures requiring assistance completed. Patient admitted, IV remains in mt2 place. Administered Medications: 16:19 Drug: Fleet Enema 133 ml Route: GA; rb1 19:06 Follow up: Response: No adverse reaction; Pain is decreased mt2 17:00 Drug: NS 0.9% 1000 ml {Note: Pt. was in the restroom due to the Fleet Enema.} Route: rb1 IV; Rate: 1000 ml; Site: left antecubital; 19:06 Follow up: Response: No adverse reaction; IV Status: Completed infusion mt2 17:00 Drug: Potassium Chloride 20 mEq Route: IV; Rate: calculated rate; Site: left rb1 antecubital; 19:07 Follow up: Response: No adverse reaction mt2 19:20 Follow up: IV Status: Completed infusion mt2 17:31 Drug: Magnesium Citrate Liquid 300 ml Route: PO; rb1 19:07 Follow up: Response: No adverse reaction; Pain is decreased mt2 Outcome: 17:19 Decision to Hospitalize by Provider. rn 20:14 Condition: stable mt2 20:14 Instructed on the need for admit. 20:28 Admitted to Med/surg accompanied by tech, room 430, Report called to DANG Jacobsen RN mt2 20:40 Patient left the ED. ea Signatures: Dispatcher [employer] EDMA Angely Coffman Irene, RN James Taylor MD MD rn Barber, Rebecca, RN RN rb1 Antunez, Elena, RN RN ea Jackson, Kandis kj1 Jannet Zheng RN RN mt2
[2020-07-08] MEDS ORDERED: MAGNESIUM CITRATE 300 ML BOT ONE (17:38)
--- NOTE | 2020-07-08 18:58 | P.HP ---
Certification for Inpatient Patient admitted to: Observation With expected LOS: <2 Midnights Patient will require the following post-hospital care: None Practitioner: I am a practitioner with admitting privileges, knowledge of patient current condition, hospital course, and medical plan of care. Services: Services provided to patient in accordance with Admission requirements found in Title 42 Section 412.3 of the Code of Federal Regulations <Elver Breen - Last Filed: 07/08/20 18:50> Patient History Date of Service: 07/08/20 Reason for admission: Fecal impaction History of Present Illness: 64-year-old male with history of glaucoma presents the emergency department for abdominal pain and distention. Patient reports he was recently admitted for 2 days for syncope and dehydration with hypokalemia. Patient reports he has not had a bowel movement since the day prior to his admission which would now be approximately 5 days. Patient has not had a problem like this in the past. Patient was evaluated in the emergency department and found to have hypokalemia, hyponatremia and also received a CT scan of the abdomen which showed fecal impaction without obstruction at this time. Patient's abdomen is distended and tight. Patient received magnesium citrate and enema in the emergency department without any relief. General surgery was contacted and case was discussed. General surgery recommends observation admission with tap water enema and mineral oil by mouth. Vital signs stable this time. Patient afebrile. Will continue with observation admit. - Past Medical/Surgical History Diabetic: No -: Glaucoma -: Inguinal hernia -: L knee - meniscus repair Psychosocial/ Personal History: Patient lives alone. - Family History father -: Heart disease - Social History Alcohol use: No CD- Drugs: No Caffeine use: No Place of Residence: Home <Elver Breen - Last Filed: 07/08/20 18:50> Date of Service: 07/09/20 <Pavan Brown - Last Filed: 07/09/20 20:24> Allergies No Known Allergies Allergy (Verified 07/04/20 23:10) Home Medications: Bimatoprost [Lumigan Opthalmic Drops*] 1 drop EACH EYE BEDTIME 07/05/20 Codeine/APAP [Tylenol W/Codeine #3 tab] 1 tab PO Q6HP PRN #14 tab 07/06/20 Cyclobenzaprine HCl [Flexeril] 5 mg PO Q12H PRN #20 tablet 07/06/20 Ibuprofen [Motrin] 600 mg PO Q8HR #30 tab 07/06/20 Pantoprazole [Protonix Tab*] 40 mg PO DAILY #10 tab 07/06/20 Review of Systems 10-point ROS is otherwise unremarkable Gastrointestinal: Abdominal Pain, Distention, Constipation <Elver Breen - Last Filed: 07/08/20 18:50> Physical Examination - Physical Exam General: Alert, In no apparent distress, Oriented x3 HEENT: Atraumatic, Normocephalic, PERRLA, Mucous membr. moist/pink Neck: Supple Respiratory: Clear to auscultation bilaterally, Normal air movement Cardiovascular: No edema Capillary refill: <2 Seconds Gastrointestinal: Hyperactive, Distended, Tenderness Musculoskeletal: No contractures, No erythema, No tenderness Integumentary: No significant lesion, No tenderness/swelling, No erythema Neurological: Sensation intact, Cranial nerves 3-12 intact, Normal reflexes 2+ - Studies Laboratory Data (last 24 hrs) 07/08/20 15:46: WBC 7.1, Hgb 13.3 L, Hct 38.6 L, Plt Count 122 L D 07/08/20 15:46: Sodium 132 L, Potassium 2.7 L*, BUN 10, Creatinine 0.82, Glucose 94, Total Bilirubin 1.5 H, AST 66 H, ALT 57, Alkaline Phosphatase 64, Lipase 68 L <Elver Breen - Last Filed: 07/08/20 18:50> - Studies Laboratory Data (last 24 hrs) 07/09/20 14:00: Potassium Cancelled 07/09/20 05:11: Sodium 138, Potassium 2.9 L*, BUN 8, Creatinine 0.64, Glucose 94, Phosphorus 2.0 L, Magnesium 2.5 H D 07/09/20 05:11: WBC 4.5 D, Hgb 12.1 L, Hct 34.9 L, Plt Count 123 L 07/09/20 02:00: Potassium Cancelled <Pavan Brown - Last Filed: 07/09/20 20:24> Assessment and Plan - Plan Assessment Fecal impaction without obstruction Hypokalemia Hyponatremia Glaucoma Plan Fecal impaction without obstruction: Patient received magnesium citrate emergency department, will continue with tap water enema, mineral oil by mouth as needed. DVT prophylaxis Lovenox 40 mg subcutaneous once daily. Will also provide patient with IV fluid hydration and clear liquid diet at this time. Hypokalemia: Electrolyte protocols in place. Will check magnesium and phosphorus level. Hyponatremia: Will continue with hydration with normal saline at this time. R echeck morning labs. Glaucoma: Obtain and continue patient's home medications. Discharge Plan: Home Plan to discharge in: 24 Hours - Advance Directives Does patient have a Living Will: No Does patient have a Durable POA for Healthcare: No - Code Status/Comfort Care Code Status Assessed: Yes (Patient is full code) Critical Care: No Time Spent Managing Pts Care (In Minutes): 55 <Elver Breen - Last Filed: 07/08/20 18:50> Physician Review Additional Text: Plan of care reviewed with Elver Breen, and I agree with plan as outlined above. <Pavan Brown - Last Filed: 07/09/20 20:24>
[2020-07-08] MEDS ORDERED: MINERAL OIL 30 ML UCUP PO ONE (20:54)
[2020-07-08] MEDS ORDERED: ACETAMINOPHEN 500 MG TAB PO PRN (20:54)
[2020-07-08] MEDS ORDERED: KCL 20 MEQ/100 mL IVPB 20 MEQ/100 ML BAG IV SCH (21:00)
[2020-07-08] MEDS: NA CHLORIDE 0.9% 1,000 ML IV SCH (21:07)
[2020-07-08] MEDS ORDERED: KETOROLAC 30 MG/ML INJ IV ONE (22:36)
[2020-07-09] MEDS ORDERED: KETOROLAC 30 MG/ML INJ IV ONE (02:21)
[2020-07-09] MEDS: NA CHLORIDE 0.9% 1,000 ML IV SCH ×2 (05:01→16:54)
[2020-07-09] MEDS ORDERED: ACETAMINOPHEN 500 MG TAB PO ONE (05:11)
[2020-07-09 05:24] LABS: Absolute Lymphocytes (CBC) 0.4 K/uL (0.7-4.9); Basophils % 0.5 % (0-1.3); Hematocrit 34.9 % (39.6-49.0); Lymphocytes % 9.6 % (15.3-44.8); MPV 8.5 fL (7.6-11.3)
[2020-07-09 05:50] LABS: BUN Blood Urea Nitrogen 8 mg/dL (7-18); Bicarbonate 26 mmol/L (21-32); Glucose Level 94 mg/dL (74-106); Magnesium 2.5 mg/dL (1.8-2.4); Sodium Level 138 mmol/L (136-145)
[2020-07-09 05:52] LABS: Potassium 2.9 mmol/L (3.5-5.1)
[2020-07-09] MEDS: KCL 20 MEQ/100 mL IVPB 20 MEQ/100 ML BAG IV SCH ×2 (06:05→09:52)
--- NOTE | 2020-07-09 07:02 | RAD REPORT ---
EXAM DESCRIPTION: RAD - Abdomen 1 View (KUB) - 07/09/2020 5:45 am CLINICAL HISTORY: abd pain, fever COMPARISON: Abdomen Pelvis W Contrast dated 07/08/2020 FINDINGS: Gas distended colon from cecum to hepatic flexure noted. Air is present in nondistended co jessica down to the distal rectum. No small bowel dilatation. No pneumatosis identified. There is an unus ual air collection in the right upper quadrant adjacent to the liver. No small bowel was seen in this region on the CT study. Follow-up imaging with an upright examination would be recommended. If the p atient cannot achieved upright positioned and a left lateral decubitus film could be obtained for rep eat CT imaging could be obtained. Contrast is present in the bladder from prior CT study. IMPRESSION: Unusual air collection in the right upper quadrant adjacent to the liver warranting furt her evaluation for possible free air. Upright KUB image could be obtained. If not tolerable by the patient in a left lateral decubitus film or repeat CT study could be performed. Continued gas distention of the colon from cecum to splenic flexure.
--- NOTE | 2020-07-09 07:03 | RAD REPORT ---
EXAM DESCRIPTION: RAD - Chest Single View - 07/09/2020 5:45 am CLINICAL HISTORY: fever COMPARISON: July 04 TECHNIQUE: AP portable chest image was obtained 07/09/2020 5:45 barnhart supine positioning . FINDINGS: Lung volumes are low. No diffuse pulmonary edema. Vasculature and lung markings are not kamara bstantially different. No new mass or consolidation. Heart and vasculature are normal. No measurable pleural effusion and no pneumothorax. No acute bony abnormality seen. No acute aortic findings suspec suyapa. IMPRESSION: Limited low lung volume examination not substantially different from comparison.
[2020-07-09] MEDS ORDERED: METRONIDAZOLE 500mg IVPB 500 MG/100 ML BAG IV SCH (09:00)
[2020-07-09] MEDS ORDERED: ENOXAPARIN 40 MG/0.4 ML SQ SCH (09:00)
[2020-07-09] MEDS ORDERED: CEFTRIAXONE/SWI 2gm 2 GM/20 ML SYR IV SCH (09:00)
[2020-07-09] MEDS ORDERED: POTASSIUM PHOS IN 0.9 % NACL 15 MMOL/250 ML BAG IV ONE (10:00)
--- NOTE | 2020-07-09 10:23 | RAD REPORT ---
EXAM DESCRIPTION: RAD - Abdomen W Erect - 07/09/2020 9:55 am CLINICAL HISTORY: free air COMPARISON: Angio Aorta For Dissection dated 07/04/2020 TECHNIQUE: Single portable upright view was obtained. FINDINGS: Diaphragm was not fully imaged on this study. Air density along the right lateral margin o f the liver is suspicious for free air. Distended colon is again identified. No pneumatosis seen. IMPRESSION: Suspicion for free air remains. Follow-up CT imaging would be recommended to exclude glenn e intraperitoneal air.
--- NOTE | 2020-07-09 11:13 | RAD REPORT ---
EXAM DESCRIPTION: CT - Abdomen Pelvis Wo Contrast - 07/09/2020 10:47 am CLINICAL HISTORY: rule out free air COMPARISON: Abdomen Pelvis W Contrast dated 07/08/2020 TECHNIQUE: Axial [address] imaging of the abdomen and pelvis was performed without IV contrast. No IV contrast was given because of allergy, abnormal renal function, patient refusal or physician re quest. No oral contrast administered. All CT scans are performed using dose optimization technique as appropriate and may include automated exposure control or mA/KV adjustment according to patient size. FINDINGS: Minimal atelectasis at each lung base. No pericardial effusion. Patient has a pronounced fatty infiltration pattern in the liver with no focal liver lesion identifia ble. No pancreatic or peripancreatic abnormality seen. No splenic abnormality. Multi stone cholelithiasis noted in a contracted gallbladder. No biliary tree dilatation. No hydronephrosis or suspicious renal mass. No significant adrenal finding. Isodense renal masses an d pyelonephritis cannot be excluded in the absence of IV contrast. Urinary bladder is contracted. Sma ll amount of contrast within the lumen from prior imaging study. Large amount of free intraperitoneal air is present primarily in the anterior upper abdomen. Zamudio of the stomach and duodenum do not appear thickened or edematous. Free air is generally not collecting in proximity to the stomach or duodenum. Perforation of an ulcer is not seen. No dilated small bowel loops. Patient has a tortuous and redundant sigmoid colon extending into the right mid abdomen. No diverticu litis or acute rectosigmoid colon process. No descending colon focal abnormality. Air and fluid are p resent in the colon. No abnormal stool volume. Gas distention of the cecum is again noted to 9 cm. Pr ominent amount of air present distending the ascending and transverse portions of the colon. There is slight nodularity of the colon wall near the ileocecal valve. Prior imaging showed contrast or possi bart an appendicolith at the tip of a nondilated appendix. Fat appendicolith or contrast is not identi fied on the current study. There is some fluid or stranding near the tip of the appendix. The appendi x remains nondilated. No pneumatosis. Bowel ischemia is not suspected. Patient has almost no aortic atherosclerotic calcif ication and no calcification of the mesenteric vasculature. No hernia, mass or bulky lymphadenopathy. No suspicious bony findings. Findings were telephoned to the referring physician. IMPRESSION: Large amount of free intraperitoneal air has developed since the July 08 CT study. No clearly defined etiology for the development of free air. Nodularity of the cecum near the ileocec al valve is noted in would be a potential site of perforation. Perforation through a nondilated appen teri would be possible as well. The stomach and duodenum show no wall thickening or edema. The free intraperitoneal air is not in pro ximity to the stomach or duodenal C-loop.
[2020-07-09] MEDS ORDERED: FENTANYL CITR 100 MCG/2 ML ONE ×2 (11:51→12:12)
[2020-07-09] MEDS ORDERED: dexAMETHasone 10 MG/ML VIAL ONE (11:51)
[2020-07-09] MEDS ORDERED: MIDAZOLAM HCL 2 MG/2 ML INJ ONE (11:51)
[2020-07-09] MEDS ORDERED: ROCURONIUM 50 MG/5 ML VIAL IV ONE (11:51)
[2020-07-09] MEDS ORDERED: propofoL 200 MG/20 ML VIAL IV ONE (11:51)
[2020-07-09] MEDS ORDERED: LIDOCAINE 2% MPF 5 ML VIAL ONE (11:51)
[2020-07-09] MEDS ORDERED: SUCCINYLCHOLINE 20 MG/ML (10 ML) IV ONE (12:00)
[2020-07-09] MEDS: PIPER/TAZO/NS 3.375gm 3.375 GM/100 ML BAG IVPB SCH ×2 (12:20→18:21)
[2020-07-09] MEDS ORDERED: ONDANSETRON 4 MG/2 ML VIAL ONE ×2 (12:56→16:39)
[2020-07-09] MEDS ORDERED: VECURONIUM 10 MG/VIAL IV ONE (12:59)
[2020-07-09] MEDS ORDERED: Ringers Lactate 1,000 ML IV ONE ×3 (13:09→17:26)
[2020-07-09] MEDS ORDERED: HETASTARCH/NACL (HESPAN) 1,000 ML IV ONE (14:47)
[2020-07-09] MEDS ORDERED: EPHEDRINE SULF 50 MG/ML VIAL ONE (14:49)
[2020-07-09 15:23] LABS: Hematocrit 29.2 % (39.6-49.0)
--- NOTE | 2020-07-09 15:43 | CON ---
Date of Consultation: 07/09/2020 Brief History Of Present Illness: The patient is a 64-year-old male with a history of glaucoma, pres ents to the emergency department with abdominal pain and distention and decreased bowel movements. Ashly hendrix was recently admitted several days ago for syncope, dehydration, hypokalemia. His last bowel movem ent was yesterday after getting mineral oil as well as enemas, and he had 2 bowel movements since yes terday. However, today his abdominal pain worse significantly as such, a KUB was performed which is concerning for free air in it and viscous perforation as such the CT was performed which shows a perf orated viscus of uncertain etiology. Past Medical History: Significant for glaucoma, inguinal hernia repair, left knee repair, and GERD. Medications: Home medications include Lumigan ophthalmic drops, Tylenol with Codeine, Flexeril, ibup rofen, and Protonix. Family History: His father had heart disease. Social History: He denies smoking, alcohol, or recreational drug use. Review of Systems: Ten-point review of systems other than HPI. Complains of abdominal pain, distention, constipation an d nausea. Physical Examination: Vital Signs: At the time of examination his vital signs were a temperature of 98.7, heart rate was 8 9, respiratory rate 20, blood pressure 156/98, SpO2 95% on room air. General: He appeared very uncomfortable in the bed, writhing in pain. Psychiatric: Otherwise, he is appropriate and conversive. HEENT: He is normocephalic. His sclerae were anicteric. Mucous membranes are moist. Oropharynx cl ear. Neck: Supple without JVD. Chest: Normal expansion and excursion. Cardiovascular: Regular rate and rhythm. Pulmonary: Clear to auscultation bilaterally, but decreased inspiratory effort secondary to pain. Abdomen: Distended, tender, peritoneal. He has an acute abdomen. Tympanic. Extremities: No clubbing, cyanosis, or edema. Skin: Warm and dry. Laboratory Data: Reveals a white blood cell count of 4.5, hemoglobin 12.1, hematocrit 34.9, platelet count is 123. His sodium was 138, potassium 2.9 and repeat is pending, CO2 101, carbon dioxide 26, BUN 8, creatinine 0.6, glucose was 94, lactic acid 1.1, calcium is 7.7, magnesium was 2.5, phosphorus is 2.0, total bilirubin 1.5, direct component was 0.8, AST 66, ALT 57, alkaline phosphatase 64, lipa se is 68. His procalcitonin was 0.1. He had a CT abdomen and pelvis performed just now, which was o fficially read as large amount of free intraperitoneal air is developed since July 08 CT study. No clearly defined etiology for the development free air, nodularity of the cecum near the ileoceca l valve is noted and will be potential side perforation, though a nondilated appendix would be possib le as well. Stomach and duodenum show no wall thickening or edema. Free intraperitoneal air is not proximally to the stomach or duodenal C-loop. Assessment/plan: This is a 64-year-old male, who comes in with an acute abdomen and evidence of inte stinal perforation of uncertain etiology. 1.IV fluid hydration. 2.Antibiotic coverage. We will change the Zosyn 3.375 IV q.6h. 3.I have explained the risks, benefits, and alternatives of exploratory laparotomy, possible bowel r esection, including but not limited to bleeding, infection, damage to surrounding tissues, need for f urther operations or procedures, colostomy creation which may be permanent, wound care, , blood clots, strokes and complications due to anesthesia. The patient agrees to proceed as indicated. MARY/KADEN Voice ID: [id number] Report ID: [id number]
[2020-07-09] MEDS ORDERED: NEOSTIGMINE 1 MG/ML -5 ML ONE (15:55)
[2020-07-09] MEDS ORDERED: GLYCOPYRROLATE 0.2 MG/ML SYR ONE ×2 (15:55)
--- NOTE | 2020-07-09 15:59 | P.OP ---
Environmental Communications Specialist: Leobardo Schaefer Preoperative diagnosis: Intestinal Perforation Postoperative diagnosis: Cecal Perforation Primary procedure: Exploratory Laparotomy Secondary procedure: Right Hemicolectomy Anesthesia: GETA Estimated blood loss: 400cc Specimen: Right Colon Findings: Perforation to Cecum, fecal contamination Complications: Other (Intra-operative bleeding from perforating vessels off anterior pancreaticoduodenal branches) Drain(s): KEISHA drain Implants: Karthik, Surgicel Fluids & blood products: 2 liters crystalloid Transferred to: ICU Condition: Serious
[2020-07-09] MEDS ORDERED: MORPHINE 10 MG/ML VIAL ONE (16:08)
[2020-07-09] MEDS ORDERED: ONDANSETRON 4 MG/2 ML VIAL IV ONE (16:29)
[2020-07-09] MEDS: HYDROMORPHONE HCL 2 MG/ML inj ONE ×3 (16:30→16:45)
[2020-07-09] MEDS ORDERED: HYDROMORPHONE HCL 2 MG/ML inj IV ONE ×3 (16:30→16:45)
--- NOTE | 2020-07-09 16:30 | RAD REPORT ---
EXAM DESCRIPTION: RAD - Abdomen Single View - 07/09/2020 4:08 pm CLINICAL HISTORY: COUNT DISCREPENCY IN OR COMPARISON: Abdomen Pelvis Wo Contrast dated 07/09/2020 FINDINGS: Single portable cross-table lateral view was obtained. Towel clamp is seen along the super ior margin of the abdomen. This would be external to the abdominal cavity. Drain tube is in place. Sk in staple is seen in the anterior upper abdomen. No radiopaque instrument or sponge suspected to be r etained. IMPRESSION: No suspicion for retained sponge or instrument in the peritoneal cavity.
[2020-07-09] MEDS: INSULIN -REGULAR HUMAN 50 UNIT/0.5 ML ML SQ SCH ×2 (16:33→21:00)
--- NOTE | 2020-07-09 17:16 | P.PN ---
Subjective Date of Service: 07/09/20 Chief Complaint: Fecal impaction Patient reports feeling better overnight after enema, but then feels like his abdomen is starting to get bigger again Febrile earlier this morning Review of Systems 10-point ROS is otherwise unremarkable Physical Examination - Vital Signs Temperature: 97.3 F Blood Pressure: 111/59 Pulse: 98 Respirations: 18 Pulse Ox (%): 95 - Physical Exam General: Alert, Mild distress HEENT: Sclerae nonicteric Neck: Supple, No LAD Respiratory: Clear to auscultation bilaterally, Normal air movement Cardiovascular: Regular rate/rhythm, Normal S1 S2 Gastrointestinal: Distended, Tenderness (Mild diffusely) Musculoskeletal: No erythema, No tenderness Integumentary: No rashes Neurological: Normal speech, Normal affect - Studies Laboratory Data (last 24 hrs) 07/09/20 14:00: Potassium Cancelled 07/09/20 05:11: Sodium 138, Potassium 2.9 L*, BUN 8, Creatinine 0.64, Glucose 94, Phosphorus 2.0 L, Magnesium 2.5 H D 07/09/20 05:11: WBC 4.5 D, Hgb 12.1 L, Hct 34.9 L, Plt Count 123 L 07/09/20 02:00: Potassium Cancelled Assessment & Plan Physician Review Additional Text: Fecal impaction without obstruction Hypokalemia Hyponatremia Glaucoma Plan Fecal impaction without obstruction: -reported some slight improvement overnight with tap water enema but now feeling like his abdomen is getting bigger -given my exam, I ordered an NG tube, however there is difficulty with placement -initial KUB with concern for free air, repeat KUB again concerning for free air. Stat CT abdomen confirmed free air -I spoke with Dr. Sauceda reviewed them in April and is taking the patient to the operating room Hypokalemia: Electrolyte protocols in place. Hyponatremia: Hydrate as needed, and recheck BMP in a.m. Glaucoma: Continue home meds Time Spent Managing Pts Care (In Minutes): 35
[2020-07-09] MEDS: Ringers Lactate 1,000 ML IV SCH (17:49)
[2020-07-09] MEDS ORDERED: PIPER/TAZO/NS 3.375gm 3.375 GM/100 ML BAG ONE (18:32)
[2020-07-10] MEDS ORDERED: PIPER/TAZO/NS 3.375gm 3.375 GM/100 ML BAG ONE ×4 (00:06→23:08)
[2020-07-10] MEDS: PIPER/TAZO/NS 3.375gm 3.375 GM/100 ML BAG IVPB SCH ×3 (00:11→16:14)
--- NOTE | 2020-07-10 02:23 | OP ---
Date of Procedure: 07/09/2020 Surgeon: Georges Parisi MD, Preoperative Diagnosis: Intestinal perforation. Postoperative Diagnosis: Cecal perforation likely secondary to toxic megacolon. Procedures: 1.Exploratory laparotomy. 2.Open right hemicolectomy. 3.Control of intraoperative bleeding. 4.Intraabdominal adhesiolysis. 5.Abdominal washout. Anesthesia: General endotracheal. Estimated Blood Loss: Approximately 400 cc. Specimens: Right colon. Findings: Perforation of cecum. Gross fecal contamination of the right colic gutter. Complications: The patient had intraoperative bleeding from perforating vessels of anterior pancreat icoduodenal branch, controlled however during the procedure with suture ligature. Drains: 10 mm flat KEISHA drain placed in the right hepatic fossa. Implants: Karthik powder and Surgicel hemostatic matrix. Fluid And Blood Products: Only given 2 L of crystalloid. Disposition: Transferred to ICU in serious condition. Procedure In Detail: After informed consent was obtained, the patient was brought to the operating r oom, prepped and draped in the usual sterile fashion. After adequate anesthesia was achieved, I made a midline laparotomy incision down through subcutaneous tissues with a 15 blade down through the sub cutaneous tissues. I then dissected down into the fascia. Fascia was opened with electrocautery in its entirety. I then entered the peritoneum sharply with Metzenbaum scissors and opened the abdomen safely in its entirety. Immediately encountered was feculent peritonitis with stool in the right col on. A small perforation was noted and there was significant contamination of the abdomen. The right colon was quite distended, consistent with toxic megacolon, approximately 20 cm in size. I took jose n the white line of Toldt at this point and found a perforation in the cecum and there were several a reas of ischemic changes to the right colon. After taking the white line of Toldt down, I mobilized the right colon and created a mesenteric window on the small bowel proximal to this area after runnin g the small bowel in its entirety finding no other perforation. The stomach appeared to be in good a natomic position. The duodenum was inspected also at this point after mobilization of the right colo n. There was no evidence of obvious perforation in any of the structure other than the cecum. After mobilizing the right colon from the lateral attachments, there was significant amount of intraabdomi nal adhesions from the omentum to the colon as well. I then proceeded to create a mesenteric window under approximately 10 cm distal from the ileocecal valve. The small bowel was ligated with a JOSE LUIS 55 stapler. At this point, I then found out area of the transverse colon after mobilizing the colon ar ound the hepatic flexure, which was found to have a good landing spot. As such, I created mesenteric window and a JOSE LUIS 75 blue load was fired across the colon. I then took the mesentery down with the L igaSure without evidence of complication. Specimen was then passed off for pathologic examination. I then created a [id number] ileocolic anastomosis to the transverse colon with a JOSE LUIS 55 stapler and sewed the common channel with a 3-0 PDS suture in a canal type, followed by interrupted 2-0 Lembert sutures. The limb of the colon appeared somewhat ischemic and as such I decided to revise this. I m obilized additional aspect of the colon, and during the mobilization process, I believe a traction in jury occurred and there was significant amount of intraperitoneal bleeding. I immediately compressed the bleeding, which was found to be in the retroperitoneal area on the anterior surface of the pancr eas. It was difficult to control as there was significant adiposity in this area and scar tissue. I requested Dr. Schaefer's assistance at this point. Dr. Schaefer then assisted me at this point and we proceeded to dissect out and get control of this bleeding vessel. Initial blood loss was minimal du e to compression with simple pressure. I then was able to grasp the bleeding vessel with DeBakey and I performed a 3-0 silk ligature of this bleeding vessel with good hemostasis. I then proceeded to p ut additional large clips proximal to this and good hemostasis was achieved at this point. I irrigat ed the area copiously until completely dry, and at this point, I placed Karthik with Surgicel over thi s area and returned to the anastomosis. At this point, the abdomen was irrigated and suctioned until dry. The small bowel had been resected as well as additional colon and I proceeded to perform anoth er [id number] anastomosis. I aligned the proximal and distal limbs of the ileum and sigmoid transv erse colon. At this point, I proceeded to create a common channel with the JOSE LUIS 55 stapler after crea ting a contaminated field. Once this was performed, the JOSE LUIS 55 was fired. The central canal was ope tra and the anastomosis was good without any evidence of bleeding and had good flow from proximal to distal. At this point, I once again performed a suture closure with 3-0 PDS in a canal-type suture a nd a running stitch and then placed interrupted 3-0 Lembert silk sutures for second layer closure and then irrigated the area copiously and wrapped the anastomosis with the omentum. Irrigated the abdom en, which was found to be clean and dry at this point. No additional blood loss was appreciated and no additional bleeding was appreciated at this point. I then brought in a 10 mm flat KEISHA drain into t he right lower quadrant in stab incision and placed in the right hepatic fossa down through the right colic gutter, which is the area of most significant contamination. I secured to the skin and then p roceeded to close the abdomen after irrigating one last time with a running #1 looped PDS suture with good approximation of tissues and closed the skin with interrupted javier after irrigating once aga in. The patient tolerated the procedure well, was transferred to the ICU in serious condition. All counts were correct at the end of the case. However, due to the bleeding, additional instruments wer e required and I will shoot an additional x-ray to confirm. Even though all counts were correct, I w ill confirm the counts correct with the x-ray. MARY/KADEN Voice ID: [id number] Report ID: [id number]
[2020-07-10] MEDS: NA CHLORIDE 0.9% 1,000 ML IV SCH (02:54)
[2020-07-10] MEDS: Ringers Lactate 1,000 ML IV SCH ×2 (03:11→16:15)
[2020-07-10] MEDS ORDERED: Ringers Lactate 1,000 ML IV ONE ×3 (03:23→23:07)
[2020-07-10] MEDS: HYDROMORPHONE HCL 1 MG/ML INJ IV PRN ×4 (04:26→16:13)
[2020-07-10] MEDS ORDERED: HYDROMORPHONE HCL 1 MG/ML INJ ONE ×4 (04:37→16:19)
[2020-07-10 04:42] LABS: Absolute Lymphocytes (CBC) 0.3 K/uL (0.7-4.9); Basophils % 0.1 % (0-1.3); Hematocrit 27.9 % (39.6-49.0); Lymphocytes % 5.8 % (15.3-44.8); MPV 8.1 fL (7.6-11.3); RBC Red Blood Cell Count 2.71 M/uL (4.33-5.43)
[2020-07-10 05:34] LABS: ALT/SGPT 34 U/L (12-78); AST/SGOT 34 U/L (15-37); Albumin 1.9 g/dL (3.4-5.0); Alkaline Phosphatase 34 U/L (45-117); BUN Blood Urea Nitrogen 9 mg/dL (7-18); Bicarbonate 27 mmol/L (21-32); Bilirubin Total 0.9 mg/dL (0.2-1.0); Glucose Level 130 mg/dL (74-106); Magnesium 2.6 mg/dL (1.8-2.4); Phosphorus 2.5 mg/dL (2.5-4.9); Potassium 3.4 mmol/L (3.5-5.1); Protein, Total 4.4 g/dL (6.4-8.2); Sodium Level 141 mmol/L (136-145)
[2020-07-10] MEDS: KCL 20 MEQ/100 mL IVPB 20 MEQ/100 ML BAG IV SCH ×2 (06:03→08:05)
[2020-07-10] MEDS: INSULIN -REGULAR HUMAN 50 UNIT/0.5 ML ML SQ SCH ×4 (07:30→21:00)
[2020-07-10] MEDS: ENOXAPARIN 40 MG/0.4 ML SQ SCH (16:13)
[2020-07-10] MEDS ORDERED: ENOXAPARIN 40 MG/0.4 ML SQ ONE (16:20)
--- NOTE | 2020-07-10 16:36 | P.PN ---
Subjective Date of Service: 07/10/20 Chief Complaint: Fecal impaction found to have perforation yesterday, now s/p right hemicolectomy feeling better, pain is controlled, NGT in place Review of Systems 10-point ROS is otherwise unremarkable Physical Examination - Vital Signs Temperature: 98.2 F Blood Pressure: 109/66 Pulse: 106 Respirations: 14 Pulse Ox (%): 96 - Physical Exam General: Alert, In no apparent distress HEENT: Other (NG-tube in place), Sclerae nonicteric Neck: No LAD Respiratory: Clear to auscultation bilaterally, Diminished Cardiovascular: Regular rate/rhythm, Normal S1 S2 Gastrointestinal: Hypoactive, Non-distended, Tenderness (Mild, diffuse) Integumentary: No rashes Neurological: Normal speech, Normal affect Urinary: Ramey catheter Assessment & Plan Physician Review Additional Text: Fecal impaction with perforation Hypokalemia Hyponatremia, resolved Glaucoma Plan Fecal impaction with perforation -s/p R hemicolectomy on 07/09 -doing well this morning -pain control, IV fluids, monitor hemoglobin -continue NG tube Hypokalemia: Electrolyte protocols in place. Glaucoma: Continue home meds Hyponatremia, resolved Time Spent Managing Pts Care (In Minutes): 35
--- NOTE | 2020-07-10 16:54 | P.PN ---
Subjective Date of Service: 07/10/20 Chief Complaint: Cecal Perforation Subjective: Improving (Patient feels well today, better post op pain at this time) Physical Examination - Vital Signs Temperature: 98.2 F Blood Pressure: 109/66 Pulse: 106 Respirations: 14 Pulse Ox (%): 96 - Physical Exam General: Alert, In no apparent distress, Cooperative HEENT: Mucous membr. moist/pink Respiratory: Normal air movement, Other (IS ~700 cc) Cardiovascular: Irregular heart rate/rhythm (Tachycardia) Gastrointestinal: Other (soft, mild appropriate TTP, mild distention, KEISHA serosanguanous) Musculoskeletal: No clubbing Neurological: Normal speech Urinary: [place] catheter Assessment And Plan - Current Problems (Diagnosis) (1) Perforation of colon Current Visit: Yes Status: Acute Plan: Critical Care Note: 64 year old man s/p Exploratory laparotomy with Right hemicolectomy for perforated cecum with feculent peritonitis on 07/09/2020 - Gen: DC dilaudid, start morphine 2 mg IV Q2 PRN pain - CVS: tachycardia likley pain and SIRS related, continue IV fluid hydration LR@ 100cc/hr - Heme: no need for transfusions, can DC Q6 h+h @ this time. - Pulm: respiratory insufficiency - encourage incentive spirometry Q15 min with goal of 15cc/kg, recommend Respiratory therapy consult, wean oxygen as tolerated - GI: anticipate ileus, continue KEISHA drainage, NG tube decompression for now, serial exams to continue, keep on abdominal binder - FEN: LR @ 100cc/hr, electrolyte replacement protocol for Mg, Phos, K, Ca. Give 2 grams Calcium gluconate IV once, nutrition: keep NPO for now, will check consi beatris TPN if no bowel function soon - ID: continue Zosyn for intra-abdominal contamination for now - Renal: keep [place], monitor urine output if <1cc/kg/ hr, over 4 hours call physician - Endo: Continue accuchecks, low dose insulin sliding scale, - Prophylaxis: start lovenox today, continue SCDs - PT/ OT consult Physician Review Additional Text: Fecal impaction with perforation Hypokalemia Hyponatremia, resolved Glaucoma Plan Fecal impaction with perforation -s/p R hemicolectomy on 07/09 -doing well this morning -pain control, IV fluids, monitor hemoglobin -continue NG tube Hypokalemia: Electrolyte protocols in place. Glaucoma: Continue home meds Hyponatremia, resolved
[2020-07-10] MEDS ORDERED: CALCIUM GLUC 10% INJ 9.3 MEQ in NA CHLORIDE 0.9% 100 ML IV ONE (16:56)
[2020-07-10] MEDS ORDERED: HOME MED [BIMATOPROST OPHTH DROPS/2.5 ML BTL] OPTH SCH (21:00)
[2020-07-11] MEDS: PIPER/TAZO/NS 3.375gm 3.375 GM/100 ML BAG IVPB SCH ×3 (00:21→18:05)
[2020-07-11] MEDS: Ringers Lactate 1,000 ML IV SCH ×4 (00:23→22:30)
[2020-07-11] MEDS: MORPHINE 2 MG/ML SYR IV PRN ×4 (03:38→20:42)
[2020-07-11] MEDS ORDERED: MORPHINE 2 MG/ML SYR ONE ×4 (03:46→20:36)
[2020-07-11 04:50] LABS: Absolute Lymphocytes (CBC) 0.7 K/uL (0.7-4.9); Basophils % 0.3 % (0-1.3); Hematocrit 25.9 % (39.6-49.0); Lymphocytes % 10.5 % (15.3-44.8); MPV 8.2 fL (7.6-11.3)
[2020-07-11 04:56] LABS: BUN Blood Urea Nitrogen 10 mg/dL (7-18); Bicarbonate 27 mmol/L (21-32); Glucose Level 102 mg/dL (74-106); Magnesium 2.5 mg/dL (1.8-2.4); Phosphorus 1.4 mg/dL (2.5-4.9); Potassium 3.2 mmol/L (3.5-5.1); Sodium Level 144 mmol/L (136-145)
[2020-07-11] MEDS: INSULIN -REGULAR HUMAN 50 UNIT/0.5 ML ML SQ SCH ×5 (07:30→20:44)
[2020-07-11] MEDS ORDERED: POTASSIUM PHOS IN 0.9 % NACL 15 MMOL/250 ML BAG IV ONE (08:00)
--- NOTE | 2020-07-11 09:04 | P.HP ---
Date of Service: 07/11/20 PC: This 65-year-old male presented to the emergency room with severe right upper quadrant abdominal pain for diagnosis and treatment. HPC: Patient been experiencing right upper quadrant abdominal pain, radiating into his back, for the last few hr prior to his presentation. He could not get relief. Associated with a heavy meal that he had. These episodes have been recurrent over the last few weeks but this was the worst. PMH: Bipolar disorder PSHx: Negative SOC: No known allergies, takes Abilify SYS REVIEW: No cough, wheeze, shortness of breath. No chest pain or palpitations. Denies any urinary complaints. Some mild hesitancy. Weight has been steady. O/E awake alert stable mildly uncomfortable HEENT: Nonicteric Chest: Chest movement equal bilaterally ABD: For quadrant abdominal tenderness LOCO: Intact DATA: Has documented gallstones most likely impacted at the neck of the gallbladder IMPRESSION: Acute cholecystitis with cholelithiasis, biliary colic PLAN: I will take him to the operating room for laparoscopic possible open cholecystectomy with cholangiogram. The risks of this procedure have been discussed. The possibility of bleeding, infection, injury to bile ducts blood vessels intestines has been described. The possible need for an open and/or further surgeries and procedures was discussed. He understands and wants us to proceed.
[2020-07-11] MEDS ORDERED: PIPER/TAZO/NS 3.375gm 3.375 GM/100 ML BAG ONE ×3 (09:24→21:21)
--- NOTE | 2020-07-11 12:26 | P.PN ---
Subjective Date of Service: 07/11/20 Chief Complaint: Cecal Perforation Subjective: Improving (Pain controlled, ambulated with PT yesterday, no BM or flatus yet) Review of Systems 10-point ROS is otherwise unremarkable Physical Examination - Vital Signs Temperature: 98.9 F Blood Pressure: 137/83 Pulse: 98 Respirations: 20 Pulse Ox (%): 99 - Physical Exam General: Alert, In no apparent distress HEENT: PERRLA, EOMI, Sclerae nonicteric Neck: Supple, JVD not distended Respiratory: Clear to auscultation bilaterally, Normal air movement Cardiovascular: Regular rate/rhythm, Normal S1 S2 Gastrointestinal: Hypoactive, Other (KEISHA drain was serosanguineous output), Tenderness (Mild along surgical incision) Musculoskeletal: No tenderness Integumentary: No rashes Neurological: Normal speech, Normal affect - Studies Medications List Reviewed: Yes Assessment & Plan Physician Review Additional Text: Fecal impaction with perforation Hypokalemia Hyponatremia, resolved Glaucoma Plan Fecal impaction with perforation -s/p R hemicolectomy on 07/09 -doing well this morning -pain control, IV fluids, monitor hemoglobin -slight drop in hemoglobin this morning, hold Lovenox, recheck H&H tonight -continue NG tube Hypokalemia: Electrolyte protocols in place. Glaucoma: Continue home meds Hyponatremia, resolved Time Spent Managing Pts Care (In Minutes): 35
[2020-07-11] MEDS ORDERED: Ringers Lactate 1,000 ML IV ONE ×2 (12:47→22:09)
[2020-07-11] MEDS: KCL 20 MEQ/100 mL IVPB 20 MEQ/100 ML BAG IV SCH ×2 (21:55→23:36)
[2020-07-11] MEDS ORDERED: KCL 20 MEQ/100 mL IVPB 40 MEQ/200 ML BAG IV ONE (22:09)
[2020-07-12] MEDS: PIPER/TAZO/NS 3.375gm 3.375 GM/100 ML BAG IVPB SCH ×3 (00:42→16:50)
[2020-07-12 05:28] LABS: Absolute Lymphocytes (CBC) 0.8 K/uL (0.7-4.9); Basophils % 0.5 % (0-1.3); Hematocrit 28.5 % (39.6-49.0); Lymphocytes % 10.8 % (15.3-44.8); MPV 7.8 fL (7.6-11.3); RBC Red Blood Cell Count 2.75 M/uL (4.33-5.43)
[2020-07-12 05:55] LABS: BUN Blood Urea Nitrogen 10 mg/dL (7-18); Bicarbonate 29 mmol/L (21-32); Glucose Level 99 mg/dL (74-106); Magnesium 2.4 mg/dL (1.8-2.4); Phosphorus 2.9 mg/dL (2.5-4.9); Potassium 3.6 mmol/L (3.5-5.1); Sodium Level 144 mmol/L (136-145)
[2020-07-12] MEDS: INSULIN -REGULAR HUMAN 50 UNIT/0.5 ML ML SQ SCH ×4 (07:30→21:00)
--- NOTE | 2020-07-12 08:34 | P.PN ---
Subjective Date of Service: 07/12/20 Chief Complaint: Cecal Perforation Subjective: Improving (Pain controlled, passing a little flatus, working with PT and OT) Review of Systems 10-point ROS is otherwise unremarkable Physical Examination - Vital Signs Temperature: 98.7 F Blood Pressure: 143/65 Pulse: 99 Respirations: 22 Pulse Ox (%): 99 - Physical Exam General: Alert, In no apparent distress HEENT: Other (NG tube), Sclerae nonicteric Neck: Supple, No LAD Respiratory: Clear to auscultation bilaterally, Diminished (Slightly at bases bilaterally) Cardiovascular: Regular rate/rhythm, Normal S1 S2 Gastrointestinal: Hypoactive, Non-distended, Other (KEISHA drain with serosanguineous output), Tenderness (mild, along surgical incision) Musculoskeletal: No tenderness Integumentary: No rashes Neurological: Normal speech, Normal affect - Studies Medications List Reviewed: Yes Assessment & Plan Physician Review Additional Text: Fecal impaction with perforation Hypokalemia Glaucoma Hyponatremia, resolved Plan Fecal impaction with perforation -s/p R hemicolectomy on 07/09 -doing well this morning -pain control, IV fluids, monitor hemoglobin -hemoglobin appears to be fairly stable, Lovenox was held yesterday, can restart -continue to monitor H/H and KEISHA drain output closely -continue NG tube -general surgery following Hypokalemia: Electrolyte protocols in place. Glaucoma: Continue home meds Hyponatremia, resolved Time Spent Managing Pts Care (In Minutes): 30
[2020-07-12] MEDS ORDERED: PIPER/TAZO/NS 3.375gm 3.375 GM/100 ML BAG ONE ×2 (10:22→16:47)
[2020-07-12] MEDS ORDERED: MORPHINE 2 MG/ML SYR ONE ×2 (10:38→16:47)
[2020-07-12] MEDS ORDERED: Ringers Lactate 1,000 ML IV ONE ×2 (10:39→21:52)
[2020-07-12] MEDS ORDERED: KCL 20 MEQ/100 mL IVPB 20 MEQ/100 ML BAG IV SCH (11:00)
[2020-07-12] MEDS ORDERED: KCL 20 MEQ/100 mL IVPB 20 MEQ/100 ML BAG IV ONE (11:24)
--- NOTE | 2020-07-12 12:04 | PN ---
Subjective: The patient is a 65-year-old gentleman, who had pneumoperitoneum underwent a right hemic olectomy. His intraoperative course was discussed in detail with Dr. Parisi. The patient is in the ICU and Dr. Parisi is going out of town, therefore he asked me to evaluate this patient over the we ekend. The patient is awake, alert, ambulating. Pain is controlled on pain medication. He states t hat he is not sure whether he passed gas or not this morning. There is no nausea or vomiting. His v itals are stable. He is currently afebrile. His NG tube put out 700 over the last 2 shifts. His KEISHA drain had serosanguineous fluids 180 cc over the last shift. Laboratory Data: Reviewed. His H and H today is 9.5 and 28.5. His chemistry reviewed as well unrem arkable. Examination reveals abdomen to be slightly distended, hypoactive bowel sounds. Dressing is clean, dry, and intact. His KEISHA has serosanguineous fluid in it. Assessment: Status post right hemicolectomy for pneumoperitoneum and perforation of the cecum. Recommendations: At this time, continue n.p.o., NG tube, ice chips, ambulation. We can start Loveno x today as H and H is stable. Once he starts having some better bowel function, decreased distention , we may begin him on clear liquids in the next 24 hours or so. Clinically, the patient is stable an d doing well. /MODL Voice ID: [id number] Report ID: [id number]
[2020-07-12] MEDS: Ringers Lactate 1,000 ML IV SCH (15:00)
[2020-07-12] MEDS ORDERED: ENOXAPARIN 40 MG/0.4 ML SQ ONE (16:48)
[2020-07-12] MEDS: ENOXAPARIN 40 MG/0.4 ML SQ SCH (16:49)
[2020-07-12] MEDS: MORPHINE 2 MG/ML SYR IV PRN (16:50)
[2020-07-12 17:36] VITALS: BMI 29.6
[2020-07-13] MEDS: Ringers Lactate 1,000 ML IV SCH ×2 (01:00→11:00)
[2020-07-13] MEDS: MORPHINE 2 MG/ML SYR IV PRN ×3 (01:20→17:11)
[2020-07-13] MEDS: PIPER/TAZO/NS 3.375gm 3.375 GM/100 ML BAG IVPB SCH ×3 (01:22→17:11)
[2020-07-13] MEDS: ONDANSETRON 4 MG/2 ML VIAL IV PRN (01:23)
[2020-07-13] MEDS ORDERED: PIPER/TAZO/NS 3.375gm 3.375 GM/100 ML BAG ONE ×3 (01:30→17:20)
[2020-07-13] MEDS ORDERED: MORPHINE 2 MG/ML SYR ONE ×4 (01:30→17:19)
[2020-07-13] MEDS ORDERED: ONDANSETRON 4 MG/2 ML VIAL ONE (01:31)
[2020-07-13 04:59] LABS: Basophils % 0.9 % (0-1.3); Hematocrit 28.8 % (39.6-49.0); Lymphocytes % 13.8 % (15.3-44.8); MPV 7.9 fL (7.6-11.3); RBC Red Blood Cell Count 2.84 M/uL (4.33-5.43)
[2020-07-13 05:16] LABS: BUN Blood Urea Nitrogen 7 mg/dL (7-18); Bicarbonate 28 mmol/L (21-32); Glucose Level 87 mg/dL (74-106); Magnesium 2.2 mg/dL (1.8-2.4); Phosphorus 3.3 mg/dL (2.5-4.9); Potassium 3.4 mmol/L (3.5-5.1); Sodium Level 142 mmol/L (136-145)
[2020-07-13] MEDS: INSULIN -REGULAR HUMAN 50 UNIT/0.5 ML ML SQ SCH ×2 (07:30→11:30)
--- NOTE | 2020-07-13 10:08 | P.PN ---
Subjective Date of Service: 07/13/20 Chief Complaint: Cecal Perforation feeling better, pain is controlled, NGT in place passing flatus, smear of stool overnight Review of Systems 10-point ROS is otherwise unremarkable Physical Examination - Vital Signs Temperature: 98 F Blood Pressure: 141/73 Pulse: 78 Respirations: 20 Pulse Ox (%): 99 - Physical Exam General: Alert, In no apparent distress HEENT: PERRLA, EOMI, Sclerae nonicteric Neck: Supple, JVD not distended Respiratory: Clear to auscultation bilaterally, Diminished (at bases bilaterally) Cardiovascular: Normal pulses, Regular rate/rhythm Gastrointestinal: Hypoactive, Soft and benign, Other (KEISHA drain: serosanguinous output), Tenderness (soreness around surgical incision) Musculoskeletal: No erythema, No tenderness Integumentary: No rashes Neurological: Normal speech, Normal affect - Studies Medications List Reviewed: Yes Assessment & Plan Physician Review Additional Text: Fecal impaction with perforation Hypokalemia Glaucoma Hyponatremia, resolved Plan Fecal impaction with perforation -s/p R hemicolectomy on 07/09 -doing well this morning -pain control, IV fluids, monitor hemoglobin -hemoglobin appears to be fairly stable, continue lovenox -continue to monitor H/H and KEISHA drain output closely -continue NG tube per general surgery -tolerated a few ice chips yesterday -working with PT/OT Hypokalemia: Electrolyte protocols in place. Glaucoma: Continue home meds Hyponatremia, resolved Time Spent Managing Pts Care (In Minutes): 30
[2020-07-13] MEDS ORDERED: Ringers Lactate 1,000 ML IV ONE (10:30)
--- NOTE | 2020-07-13 12:03 | PN ---
Date of Progress Note: 07/13/2020 Subjective: Patient is awake, alert, passing gas, hungry. His vitals are stable. He is afebrile. His KEISHA is putting out quite a bit, about 600 mL of serosanguineous fluid increased since a couple of days ago, but his NG tube is less. Laboratory Data: Shows a white count of 7.4, H and H are 10 and 28. Chemistry reviewed, it is not a cidotic. Abdomen is soft, positive bowel sounds. Nondistended, nontender. Assessment: Status post right hemicolectomy for perforated cecum. Recommendations: We will begin sips of clear liquids. Clamp his NG tube. I encouraged ambulation. Continues DVT prophylaxis, incentive spirometry. Patient is clinically doing well and slowly improv ing. /MODL Voice ID: [id number] Report ID: [id number]
[2020-07-13] MEDS: ENOXAPARIN 40 MG/0.4 ML SQ SCH (17:11)
[2020-07-13] MEDS ORDERED: ENOXAPARIN 40 MG/0.4 ML SQ ONE (17:20)
[2020-07-14] MEDS: PIPER/TAZO/NS 3.375gm 3.375 GM/100 ML BAG IVPB SCH ×3 (00:33→17:07)
[2020-07-14] MEDS: Ringers Lactate 1,000 ML IV SCH ×3 (00:33→16:15)
[2020-07-14] MEDS ORDERED: PIPER/TAZO/NS 3.375gm 3.375 GM/100 ML BAG ONE ×3 (00:42→17:02)
[2020-07-14] MEDS ORDERED: Ringers Lactate 1,000 ML IV ONE ×2 (00:42→08:09)
[2020-07-14] MEDS: MORPHINE 2 MG/ML SYR IV PRN ×4 (04:55→19:57)
[2020-07-14 04:58] LABS: Absolute Lymphocytes (CBC) 1.3 K/uL (0.7-4.9); Basophils % 0.4 % (0-1.3); Hematocrit 31.5 % (39.6-49.0); Lymphocytes % 12.9 % (15.3-44.8); MPV 8.6 fL (7.6-11.3); RBC Red Blood Cell Count 3.15 M/uL (4.33-5.43)
[2020-07-14] MEDS ORDERED: MORPHINE 2 MG/ML SYR ONE ×2 (04:58→10:33)
[2020-07-14 05:05] LABS: BUN Blood Urea Nitrogen 7 mg/dL (7-18); Bicarbonate 29 mmol/L (21-32); Glucose Level 83 mg/dL (74-106); Magnesium 1.6 mg/dL (1.8-2.4); Phosphorus 3.2 mg/dL (2.5-4.9); Potassium 3.8 mmol/L (3.5-5.1); Sodium Level 137 mmol/L (136-145)
[2020-07-14] MEDS ORDERED: MAGNESIUM SULFATE 1 gm IVPB 1 GM/100 ML BAG IV ONE ×2 (08:09→09:00)
--- NOTE | 2020-07-14 08:47 | P.PN ---
Subjective Date of Service: 07/14/20 Chief Complaint: Cecal Perforation Subjective: Improving (Continues to feel better, tolerated clear liquid diet, NG tube was clamped yesterday, passing more flatus Ramey catheter removed this morning) Review of Systems 10-point ROS is otherwise unremarkable Physical Examination - Vital Signs Temperature: 98.2 F Blood Pressure: 116/79 Pulse: 90 Respirations: 20 Pulse Ox (%): 99 - Physical Exam General: Alert, In no apparent distress, Other (Sitting up in chair) HEENT: Mucous membr. moist/pink, Other (NG tube in place), Sclerae nonicteric Neck: No LAD Respiratory: Clear to auscultation bilaterally, Normal air movement Cardiovascular: Regular rate/rhythm, Normal S1 S2 Gastrointestinal: Soft and benign, Non-distended, Tenderness (Mild diffusely, slightly more on the right) Musculoskeletal: No erythema, No tenderness Integumentary: No rashes Neurological: Normal speech, Normal affect - Studies Medications List Reviewed: Yes Assessment & Plan Physician Review Additional Text: Fecal impaction with perforation Glaucoma Hypokalemia, Hyponatremia, resolved Plan Fecal impaction with perforation -s/p R hemicolectomy on 07/09 -doing well this morning, tolerated clear liquid diet -pain control, IV fluids, monitor hemoglobin -hemoglobin appears to be fairly stable, continue lovenox -KEISHA drain with ~300 ml serosanguineous output overnight -NG tube per general surgery, possibly out today -vitals WNL & stable -working with PT/OT Glaucoma: Continue home meds Hypokalemia, Hyponatremia, resolved, Electrolyte protocols in place. Dispo: likely out of ICU today (will defer to surgery), anticipate dc home in 2- 3 days Time Spent Managing Pts Care (In Minutes): 30
--- NOTE | 2020-07-14 11:04 | P.PN ---
Subjective Date of Service: 07/14/20 Chief Complaint: Cecal Perforation Subjective: Improving (Patient feels much better, ambulatory, pain improved,passing gas, NGT clamped since yesterday and tolerated clear liquids.) Physical Examination - Vital Signs Temperature: 98.2 F Blood Pressure: 116/79 Pulse: 90 Respirations: 20 Pulse Ox (%): 99 - Physical Exam General: Alert, In no apparent distress, Cooperative HEENT: Normocephalic, Mucous membr. moist/pink Neck: Supple Respiratory: Clear to auscultation bilaterally, Diminished (IS ~1000cc) Cardiovascular: Normal pulses, Regular rate/rhythm Gastrointestinal: Other (soft, mild appropriate TTP, ND, KEISHA serosanguanous, incision clean and dry, javier in place.) Musculoskeletal: No clubbing, No swelling, No contractures, No erythema, No tenderness Integumentary: No rashes, No breakdown Neurological: Normal gait, Normal speech - Studies Noted Medications List Reviewed: Yes Assessment And Plan - Current Problems (Diagnosis) (1) Perforation of colon Current Visit: Yes Status: Acute Plan: Critical Care Note: 64 year old man s/p Exploratory laparotomy with Right hemicolectomy for perforated cecum with feculent peritonitis on 07/09/2020 - Gen: continue morphine 2 mg IV Q2 PRN pain, anticipate transition to PO today - CVS: tachycardia likley pain and SIRS related, continue IV fluid hydration LR@ 100cc/hr - Heme: no need for transfusions, daily checks, ok to continue DVT prophylaxis - Pulm: respiratory insufficiency - encourage incentive spirometry Q15 min with goal of 15cc/kg, recommend Respiratory therapy consult, wean oxygen as tolerated - GI: anticipate ileus, continue KEISHA drainage, DC NGT today serial exams to continue, keep on abdominal binder - FEN: LR @ 100cc/hr, electrolyte replacement protocol for Mg, Phos, K, Ca. nutrition: tolerated clears will advance to full liquid today - ID: continue Zosyn for intra-abdominal contamination for now - Renal: [place] out , monitor urine output if <1cc/kg/ hr, over 4 hours call physician - Endo: Continue accuchecks, low dose insulin sliding scale, - Prophylaxis: start lovenox today, continue SCDs - PT/ OT consult - ok to transfer to floor today Physician Review Additional Text: Fecal impaction with perforation Glaucoma Hypokalemia, Hyponatremia, resolved Plan Fecal impaction with perforation -s/p R hemicolectomy on 07/09 -doing well this morning, tolerated clear liquid diet -pain control, IV fluids, monitor hemoglobin -hemoglobin appears to be fairly stable, continue lovenox -KEISHA drain with ~300 ml serosanguineous output overnight -NG tube per general surgery, possibly out today -vitals WNL & stable -working with PT/OT Glaucoma: Continue home meds Hypokalemia, Hyponatremia, resolved, Electrolyte protocols in place. Dispo: likely out of ICU today (will defer to surgery), anticipate dc home in 2- 3 days Time Spent Managing PTS Care (In Minutes): 35
[2020-07-14] MEDS: ENOXAPARIN 40 MG/0.4 ML SQ SCH (16:22)
[2020-07-14] MEDS: HYDROCODONE/APAP 5/325 MG TAB PO PRN (21:20)
[2020-07-15] MEDS ORDERED: PIPER/TAZO/NS 3.375gm 3.375 GM/100 ML BAG ONE (00:13)
[2020-07-15] MEDS: PIPER/TAZO/NS 3.375gm 3.375 GM/100 ML BAG IVPB SCH ×3 (00:46→16:05)
[2020-07-15] MEDS: Ringers Lactate 1,000 ML IV SCH ×3 (00:46→15:00)
[2020-07-15] MEDS: MORPHINE 2 MG/ML SYR IV PRN ×4 (01:18→11:28)
[2020-07-15 04:14] LABS: Basophils % 0.6 % (0-1.3); Hematocrit 29.9 % (39.6-49.0); Lymphocytes % 10.8 % (15.3-44.8); MPV 8.1 fL (7.6-11.3)
[2020-07-15 04:19] LABS: BUN Blood Urea Nitrogen 6 mg/dL (7-18); Bicarbonate 29 mmol/L (21-32); Glucose Level 102 mg/dL (74-106); Magnesium 2.2 mg/dL (1.8-2.4); Phosphorus 3.3 mg/dL (2.5-4.9); Potassium 3.5 mmol/L (3.5-5.1); Sodium Level 136 mmol/L (136-145)
[2020-07-15] MEDS ORDERED: POTASSIUM CL SA 10 MEQ TAB PO ONE (07:44)
--- NOTE | 2020-07-15 12:50 | P.PN ---
Subjective Date of Service: 07/15/20 Chief Complaint: Cecal Perforation Patient is doing well. NGT has been discontinued. He has tolerated liquid diet. He is passing gas. No bowel movement yet. Physical Examination - Vital Signs Temperature: 98.1 F Blood Pressure: 106/67 Pulse: 87 Respirations: 16 Pulse Ox (%): 96 - Physical Exam General: Alert, In no apparent distress, Oriented x3 HEENT: Mucous membr. moist/pink Neck: Supple Respiratory: Clear to auscultation bilaterally, Normal air movement Cardiovascular: No edema, Regular rate/rhythm, Normal S1 S2 Gastrointestinal: Normal bowel sounds, Non-distended Musculoskeletal: No swelling, No erythema Integumentary: No rashes Neurological: Normal strength at 5/5 x4 extr - Studies Medications List Reviewed: Yes Assessment And Plan Physician Review Additional Text: Fecal impaction with perforation Glaucoma Hypokalemia, Hyponatremia, resolved Plan Fecal impaction with perforation -s/p R hemicolectomy on 07/09 -doing well and tolerating liquid diet. -pain control, IV fluids. -continue oral antibiotics. -working with PT/OT Glaucoma: Continue home meds Hypokalemia, Hyponatremia: Resolved. Replete electrolytes as needed.
[2020-07-15] MEDS: HYDROCODONE/APAP 5/325 MG TAB PO PRN ×2 (13:39→19:41)
--- NOTE | 2020-07-15 14:23 | P.PN ---
Subjective Date of Service: 07/11/20 Chief Complaint: Cecal Perforation Patient stable post op, no new issues, no gas, no bm. Physical Examination - Vital Signs Temperature: 98.1 F Blood Pressure: 106/67 Pulse: 87 Respirations: 16 Pulse Ox (%): 96 - Physical Exam General: Alert, In no apparent distress, Cooperative HEENT: Atraumatic, PERRLA Neck: Supple Respiratory: Clear to auscultation bilaterally, Diminished (IS ~900cc) Cardiovascular: No edema, Normal pulses, Regular rate/rhythm Gastrointestinal: Other (soft, mild approrpiate TTP, mild distention, KEISHA serosang, binder in place) Integumentary: No rashes, No breakdown, No tenderness/swelling Neurological: Normal speech Urinary: [place] catheter - Studies Medications List Reviewed: Yes Assessment And Plan - Current Problems (Diagnosis) (1) Perforation of colon Current Visit: Yes Status: Acute Plan: Critical Care Note: 64 year old man s/p Exploratory laparotomy with Right hemicolectomy for perforated cecum with feculent peritonitis on 07/09/2020 - Gen: continue morphine 2 mg IV Q2 PRN pain, anticipate transition to PO today - CVS: tachycardia likley pain and SIRS related, continue IV fluid hydration LR@ 100cc/hr - Heme: no need for transfusions, daily checks, ok to continue DVT prophylaxis - Pulm: respiratory insufficiency - encourage incentive spirometry Q15 min with goal of 15cc/kg, recommend Respiratory therapy consult, wean oxygen as tolerated - GI: anticipate ileus, continue KEISHA drainage, DC NGT today serial exams to continue, keep on abdominal binder - FEN: LR @ 100cc/hr, electrolyte replacement protocol for Mg, Phos, K, Ca. nutrition: tolerated clears will advance to full liquid today - ID: continue Zosyn for intra-abdominal contamination for now - Renal: [place] out , monitor urine output if <1cc/kg/ hr, over 4 hours call physician - Endo: Continue accuchecks, low dose insulin sliding scale, - Prophylaxis: start lovenox today, continue SCDs - PT/ OT consult - Physician Review Additional Text: Fecal impaction with perforation Glaucoma Hypokalemia, Hyponatremia, resolved Plan Fecal impaction with perforation -s/p R hemicolectomy on 07/09 -doing well and tolerating liquid diet. -pain control, IV fluids. -continue oral antibiotics. -working with PT/OT Glaucoma: Continue home meds Hypokalemia, Hyponatremia: Resolved. Replete electrolytes as needed. Time Spent Managing PTS Care (In Minutes): 37
--- NOTE | 2020-07-15 14:25 | P.PN ---
Subjective Date of Service: 07/15/20 Chief Complaint: Cecal Perforation Patient feels well, passing gas, had a BM, NG out, [place] out. ambulatory. Physical Examination - Vital Signs Temperature: 98.1 F Blood Pressure: 106/67 Pulse: 87 Respirations: 16 Pulse Ox (%): 96 - Physical Exam General: Alert, In no apparent distress, Cooperative HEENT: Atraumatic Respiratory: Clear to auscultation bilaterally Gastrointestinal: Other (soft, mild appropriate TTP, ND, incision has minimal serous drainage from superior pole, KEISHA serosang, javier in place.) - Studies Medications List Reviewed: Yes Assessment And Plan - Current Problems (Diagnosis) (1) Perforation of colon Current Visit: Yes Status: Acute Plan: Critical Care Note: 64 year old man s/p Exploratory laparotomy with Right hemicolectomy for perforated cecum with feculent peritonitis on 07/09/2020 - Gen: wean off morphine 2 mg IV Q2 PRN pain, encourage [place] - CVS: wean off IV fluids today keep at kvo - Heme: no need for transfusions, daily checks, ok to continue DVT prophylaxis - Pulm: respiratory insufficiency - encourage incentive spirometry Q15 min with goal of 15cc/kg, recommend Respiratory therapy consult, wean oxygen as tolerated - GI: bowel function returned continue KEISHA drainage, keep on abdominal binder - FEN: wean off LR @ 100cc/hr, electrolyte replacement protocol for Mg, Phos, K, Ca. nutrition: soft diet today - ID: continue Zosyn for intra-abdominal contamination for now - Renal: [place] out , monitor urine output if <1cc/kg/ hr, over 4 hours call physician - Endo: Continue accuchecks, low dose insulin sliding scale, - Prophylaxis: start lovenox today, continue SCDs - PT/ OT consult - place wick in incision to assist with serous drainage Physician Review Additional Text: Fecal impaction with perforation Glaucoma Hypokalemia, Hyponatremia, resolved Plan Fecal impaction with perforation -s/p R hemicolectomy on 07/09 -doing well and tolerating liquid diet. -pain control, IV fluids. -continue oral antibiotics. -working with PT/OT Glaucoma: Continue home meds Hypokalemia, Hyponatremia: Resolved. Replete electrolytes as needed.
[2020-07-15] MEDS: ENOXAPARIN 40 MG/0.4 ML SQ SCH (16:05)
[2020-07-16] MEDS: PIPER/TAZO/NS 3.375gm 3.375 GM/100 ML BAG IVPB SCH ×3 (00:26→16:25)
[2020-07-16] MEDS: Ringers Lactate 1,000 ML IV SCH (04:21)
[2020-07-16 05:41] LABS: Absolute Lymphocytes (CBC) 1.3 K/uL (0.7-4.9); Basophils % 1.1 % (0-1.3); Hematocrit 26.7 % (39.6-49.0); Lymphocytes % 13.7 % (15.3-44.8); MPV 8.2 fL (7.6-11.3); RBC Red Blood Cell Count 2.68 M/uL (4.33-5.43)
[2020-07-16 05:46] LABS: BUN Blood Urea Nitrogen 5 mg/dL (7-18); Bicarbonate 30 mmol/L (21-32); Glucose Level 95 mg/dL (74-106); Magnesium 2.3 mg/dL (1.8-2.4); Phosphorus 3.3 mg/dL (2.5-4.9); Potassium 3.8 mmol/L (3.5-5.1); Sodium Level 138 mmol/L (136-145)
[2020-07-16] MEDS: HYDROCODONE/APAP 5/325 MG TAB PO PRN ×4 (06:11→18:00)
[2020-07-16] MEDS ORDERED: POTASSIUM CL SA 10 MEQ TAB PO ONE (09:00)
--- NOTE | 2020-07-16 12:47 | P.PN ---
Subjective Date of Service: 07/16/20 Chief Complaint: Cecal Perforation Patient is doing well. Patient has tolerated advancement to soft diet He is passing gas. Also states he had a small bowel movement. He has a KEISHA drain which continues to drain serous fluid. Physical Examination - Vital Signs Temperature: 97.8 F Blood Pressure: 116/74 Pulse: 89 Respirations: 20 Pulse Ox (%): 94 - Physical Exam General: Alert, In no apparent distress Respiratory: Clear to auscultation bilaterally, Normal air movement Cardiovascular: No edema, Regular rate/rhythm, Normal S1 S2 Gastrointestinal: Normal bowel sounds Musculoskeletal: No swelling, No erythema Integumentary: No rashes Neurological: Other (Nonfocal) - Studies Medications List Reviewed: Yes Assessment And Plan Physician Review Additional Text: Fecal impaction with perforation Glaucoma Hypokalemia, Hyponatremia, resolved Plan Fecal impaction with perforation -s/p R hemicolectomy on 07/09 -doing well and tolerating soft diet. -continue pain control. Patient informed to rely on the oral pain medications rather than IV. -continue antibiotics. -working with PT/OT -general surgery Dr. Parisi is following. Glaucoma: Continue home meds Hypokalemia, Hyponatremia: Resolved. Replete electrolytes as needed.
[2020-07-16] MEDS: ENOXAPARIN 40 MG/0.4 ML SQ SCH (16:25)
[2020-07-16] MEDS: ONDANSETRON 4 MG/2 ML VIAL IV PRN (18:02)
[2020-07-16] MEDS: ENSURE HIGH PROTEIN 237 ML CAN PO SCH (21:28)
[2020-07-17] MEDS: HYDROCODONE/APAP 5/325 MG TAB PO PRN ×4 (01:01→11:36)
[2020-07-17] MEDS: PIPER/TAZO/NS 3.375gm 3.375 GM/100 ML BAG IVPB SCH ×2 (01:03→09:54)
[2020-07-17 03:19] VITALS: O2SAT 93
[2020-07-17 04:50] LABS: Absolute Lymphocytes (CBC) 1.4 K/uL (0.7-4.9); Basophils % 0.7 % (0-1.3); Hematocrit 26.6 % (39.6-49.0); Lymphocytes % 13.1 % (15.3-44.8); MPV 7.7 fL (7.6-11.3); RBC Red Blood Cell Count 2.68 M/uL (4.33-5.43)
[2020-07-17 05:10] LABS: BUN Blood Urea Nitrogen 4 mg/dL (7-18); Bicarbonate 28 mmol/L (21-32); Glucose Level 86 mg/dL (74-106); Sodium Level 138 mmol/L (136-145)
[2020-07-17] MEDS: ENSURE HIGH PROTEIN 237 ML CAN PO SCH (09:00)
[2020-07-17] MEDS: ONDANSETRON 4 MG/2 ML VIAL IV PRN (11:37)
--- NOTE | 2020-07-17 12:05 | P.DS ---
Admission Date: 07/09/20 Discharge Date: 07/17/20 [facility] Discharge Condition: FAIR Reason for Admission: Cecal Perforation Consultations: General Surgery-Dr. Parisi Brief History of Present Illness: 65-year-old gentleman with a history of glaucoma presented to the emergency department with a complaint of abdominal pain and distention. Patient noted to have fecal impaction by CT scan of the abdomen. He was admitted for further treatment. Hospital Course: General surgery was consulted, patient was seen by Dr. Parisi. He was initially treated with enemas for the fecal impaction. His abdominal pain and decision making worse. Follow up KUB and CT abdomen and pelvis reported perforated viscus. Exploratory laparotomy was performed, hemicolectomy was done. Surgery was complicated by intra op bleeding which was controlled. Patient was monitored in the postop period in the ICU. He developed fever. He was treated with IV Zosyn for infection. His clinical condition gradually improved with treatment, NG tube was subsequently removed and transferred to the floor. Patient tolerated liquid diet and subsequently soft diet. He was kept on antibiotics for most part during the hospital stay. He was afebrile for several days. He began passing gas and had a bowel movement. Patient has clinically improved and deemed stable for discharge per Dr. Parisi. He is discharged with oral antibiotics. He will follow with Dr. Parisi within 1 week. Vital Signs/Physical Exam: Temp Pulse Resp BP Pulse Ox 97.6 F 82 18 114/72 96 07/17/20 08:00 07/17/20 08:00 07/17/20 11:36 07/17/20 08:00 07/17/20 11:36 General: Alert, In no apparent distress HEENT: Mucous membr. moist/pink Neck: Supple, JVD not distended Respiratory: Clear to auscultation bilaterally, Normal air movement Cardiovascular: No edema, Normal pulses, Regular rate/rhythm Gastrointestinal: Normal bowel sounds, Other (KEISHA drain) Musculoskeletal: No swelling, No erythema Integumentary: No rashes Neurological: Other (Nonfocal) Laboratory Data at Discharge: WBC 10.8 K/uL (4.3-10.9) D 07/17/20 04:23 Hgb 9.3 g/dL (13.6-17.9) L 07/17/20 04:23 Hct 26.6 % (39.6-49.0) L 07/17/20 04:23 Plt Count 466 K/uL (152-406) H 07/17/20 04:23 Sodium 138 mmol/L (136-145) 07/17/20 04:23 Potassium 4.0 mmol/L (3.5-5.1) 07/17/20 04:23 BUN 4 mg/dL (7-18) L 07/17/20 04:23 Creatinine 0.69 mg/dL (0.55-1.3) 07/17/20 04:23 Glucose 86 mg/dL (74-106) 07/17/20 04:23 Phosphorus 3.3 mg/dL (2.5-4.9) 07/16/20 05:06 Magnesium 2.3 mg/dL (1.8-2.4) 07/16/20 05:06 Total Bilirubin 0.9 mg/dL (0.2-1.0) 07/10/20 04:16 AST 34 U/L (15-37) 07/10/20 04:16 ALT 34 U/L (12-78) 07/10/20 04:16 Alkaline Phosphatase 34 U/L (45-117) L 07/10/20 04:16 Lipase 68 U/L (73-393) L 07/08/20 15:46 Home Medications: Bimatoprost [Lumigan Opthalmic Drops*] 1 drop EACH EYE BEDTIME 07/05/20 Codeine/APAP [Tylenol #3*] 1 tab PO Q6HP PRN #14 tab 07/06/20 Cyclobenzaprine HCl [Flexeril] 5 mg PO Q12H PRN #20 tablet 07/06/20 Pantoprazole [Protonix Tab*] 40 mg PO DAILY #10 tab 07/06/20 Ensure High Protein 237 ml PO BID #60 can 07/17/20 levoFLOXacin [Levaquin] 500 mg PO DAILY #5 tab 07/17/20 metroNIDAZOLE [Metronidazole] 500 mg PO TID #15 tablet 07/17/20 New Medications: Ensure High Protein 237 ml PO BID #60 can levoFLOXacin [Levaquin] 500 mg PO DAILY #5 tab metroNIDAZOLE [Metronidazole] 500 mg PO TID #15 tablet Patient Discharge Instructions: Change dressing daily with wet-to-dry dressing and packing. Record volume of drainage from the KEISHA drain each day. Diet: Regular (Soft diet) Activity: Ad oscar Followup: Georges Parisi MD [ACTIVE - CAN ADMIT] - Time spent managing pt's care (in minutes): 48
[2020-07-17 15:49] VITALS: BP 105/68; TEMP 97.7
[2020-07-17] MEDS ORDERED: AMOX/K CLAV 875 MG TAB PO SCH (21:00)
== END 2020-07-17 13:14 | disposition home health service (06) | DRG 330 ==
LOC: ER 15:08 → ERHOLD 18:37 → UNDOADMOB 18:37 → 4TH 20:08 → ERHOLD 20:08 → OBSVTOIN 07-09 14:05 → INTOOBSV 07-09 14:05 → ERHOLD 07-09 18:04 → 4TH 07-09 18:04 → 2ND 07-14 11:29
PROVIDERS: ADMIT Hospitalist; ATTEND Internal Medicine
PROC: 0WJP0ZZ Inspection of Gastrointestinal Tract, Open Approach (ICD-10-PCS; 2020-07-09)
PROC: 0W9G00Z Drainage of Peritoneal Cavity with Drainage Device, Open Approach (ICD-10-PCS; 2020-07-09)
PROC: 0DTF0ZZ Resection of Right Large Intestine, Open Approach (ICD-10-PCS; principal; 2020-07-09 11:15)
DX: K63.1 Perforation of intestine (nontraumatic) (principal); K59.31 Toxic megacolon; E87.1 Hypo-osmolality and hyponatremia; K80.00 Calculus of gallbladder with acute cholecystitis without obstruction; K56.41 Fecal impaction; E87.6 Hypokalemia; K21.9 Gastro-esophageal reflux disease without esophagitis; H40.9 Unspecified glaucoma; R00.0 Tachycardia, unspecified; Z60.2 Problems related to living alone; Z79.891 Long term (current) use of opiate analgesic; Z79.899 Other long term (current) drug therapy; Z20.828 Contact with and (suspected) exposure to other viral communicable diseases
CPT/HCPCS: 36415; 71045; 74018; 74019; 74176; 74177; 80048; 80053; 80076; 82947; 83605; 83690; 83735; 84100; 84132; 84145; 85014; 85018; 85025; 86850; 86900; 86901; 88307; 94760; 96365; 96366; 97110; 97116; 97161; 97530; 99285; G0378; J0330; J0610; J0696; J1100; J1170; J1650; J2250; J2270; J2405; J2543; J2704; J2710; J3010; J3475; J3480; J7030; J7120; Q9967; U0002

== ENCOUNTER 2022-06-19 09:20 | Observation (INO) | payer OTHER ==
--- OUTSIDE RECORDS SUMMARY | 2022-06-19 09:22 | XMS REPORT | Continuity of Care Document ---
:1955 Author Organization [facility] t Address [address] [place] [address] Care Team Providers Name Role Phone SAMUEL THORNE Attending Clinician Unavailable Problems This patient has no known problems. Allergies, Adverse Reactions, Alerts This patient has no known allergies or adverse reactions. Medications This patient has no known medications. Procedures This patient has no known procedures. Encounters Start End Encounter Admission Attending Care Care Encounter Source Date/Time Date/Time Type Type Clinicians Facility Department ID 2020-10-15 2020-10-15 Outpatient TEODORO THORNE [facility] [id number] 11:38:00 23:59:00 [facility] Results This patient has no known results.
[2022-06-19 10:50] LABS: Absolute Lymphocytes (CBC) 0.4 K/uL (0.7-4.9); Hematocrit 45.4 % (39.6-49.0); Lymphocytes % 7.2 % (15.3-44.8); MCV 98.6 fL (80-100); MPV 8.4 fL (7.6-11.3); RBC Red Blood Cell Count 4.61 M/uL (4.33-5.43)
[2022-06-19 10:51] LABS: Protime INR 1.19
--- NOTE | 2022-06-19 11:11 | RAD REPORT ---
EXAM DESCRIPTION: Sugey Single View06/19/2022 10:30 am CLINICAL HISTORY: Chest pain COMPARISON: 2019 FINDINGS: Chronic elevation left hemidiaphragm The lungs appear clear of acute infiltrate. The heart is normal size IMPRESSION: No acute abnormalities displayed
[2022-06-19] MEDS ORDERED: NA CHLORIDE 0.9% 500 ML ONE (11:27)
[2022-06-19 11:28] LABS: Albumin 3.9 g/dL (3.4-5.0); Bilirubin Direct 0.8 mg/dL (0-0.2); Bilirubin Total 2.3 mg/dL (0.2-1.0); Magnesium 1.9 mg/dL (1.8-2.4); Protein, Total 6.9 g/dL (6.4-8.2); Troponin High Sensitivity 8.3 pg/mL (<58.9)
[2022-06-19 11:31] LABS: Blood Morphology Comment NOT SEEN (NOT SEEN); White Blood Cell Scan OK (OK)
--- NOTE | 2022-06-19 11:35 | RAD REPORT ---
EXAM DESCRIPTION: RAD - Elbow Right 3 View - 06/19/2022 11:24 am CLINICAL HISTORY: Elbow injury with pain FINDINGS: No fracture or dislocation is seen. Soft tissue laceration Large spur/calcification abuts the olecranon process
[2022-06-19] MEDS ORDERED: POTASSIUM 25 MEQ EFFERV TAB ONE (12:02)
[2022-06-19] MEDS ORDERED: Ringers Lactate 1,000 ML IV ONE (12:03)
--- NOTE | 2022-06-19 12:18 | ER ---
Nurse's Notes [facility] Name: Rafa Minaya Age: 66 yrs Sex: Male : 1955 Arrival Date: 06/19/2022 Time: 09:37 Bed 14 Private MD: Diagnosis: Other seizures;Chest pain, unspecified;Hypo-osmolality and hyponatremia;Hypokalemia Presentation: 06/19 09:38 Chief complaint: EMS states: Pt became dizzy and fell at [employer], no LOC, laceration to ph R elbow, seizure-like activity noted by EMS lasting approx 2-3 minutes, 2 mg Ativan given IM, no hx of seizures, 12 lead showed a-fib, denies hx of a-fib, pt post-ictal w/ mild confusion, oriented to person, place, and time. Coronavirus screen: Vaccine status: Patient reports being unvaccinated. Ebola Screen: No symptoms or risks identified at this time. Initial Sepsis Screen: Does the patient meet any 2 criteria? No. Patient's initial sepsis screen is negative. Does the patient have a suspected source of infection? No. Patient's initial sepsis screen is negative. Risk Assessment: Do you want to hurt yourself or someone else? Patient reports no desire to harm self or others. Onset of symptoms was June 19, 2022. 09:38 Method Of Arrival: EMS: [facility] ph 09:38 Acuity: NORMAN 2 ph 09:41 Note Pt's firearm was given to hospital security. ph Triage Assessment: 09:42 General: Appears in no apparent distress. comfortable, well groomed, Behavior is calm, ph cooperative, appropriate for age. Pain: Complains of pain in lumbar area. Neuro: Level of Consciousness is awake, alert, obeys commands, Oriented to person, place, time, Moves all extremities. Speech is normal, Facial symmetry appears normal, Pupils are PERRLA, Seizure activity reported prior to arrival. Cardiovascular: Capillary refill < 3 seconds in bilateral fingers Patient's skin is warm and dry. Rhythm is sinus tachycardia. Respiratory: Airway is patent Respiratory effort is even, unlabored. Derm: Skin is pink, warm \T\ dry. Musculoskeletal: Circulation, motion, and sensation intact. Range of motion: intact in all extremities. Injury Description: Laceration sustained to right elbow. Historical: - Allergies: 09:42 No Known Allergies; ph - PMHx: 09:42 Glaucoma; Hypertensive disorder; ph - Immunization history:: Adult Immunizations unknown. - Social history:: Smoking status: Patient denies any tobacco usage or history of. Screenin:44 Abuse screen: Denies threats or abuse. Denies injuries from another. Nutritional ph screening: No deficits noted. Tuberculosis screening: No symptoms or risk factors identified. Fall Risk Fall in past 12 months (25 points). Secondary diagnosis (15 points) seizures, IV access (20 points). Ambulatory Aid- None/Bed Rest/Nurse Assist (0 pts). Gait- Normal/Bed Rest/Wheelchair (0 pts) Mental Status- Oriented to own ability (0 pts). Total Lay Fall Scale indicates High Risk Score (45 or more points). Fall prevention measures have been instituted. Side Rails Up X 2 Placed Close to Nursing Station Frequent Obs/Assessments Occuring As available patient and family educated on Fall Prevention Program and Strategies. Assessment: 10:09 General: SEE TRIAGE ASSESSMENT. ph 11:28 Reassessment: Patient appears in no apparent distress at this time. Patient and/or ph family updated on plan of care and expected duration. Pain level reassessed. Patient is alert, oriented x 3, equal unlabored respirations, skin warm/dry/pink. Patient states feeling better. 13:30 Reassessment: Dr Leavitt at bedside to speak w/ pt. ph 13:41 Reassessment: Patient appears in no apparent distress at this time. Patient and/or ph family updated on plan of care and expected duration. Pain level reassessed. Patient is alert, oriented x 3, equal unlabored respirations, skin warm/dry/pink. ERP at bedside for R elbow laceration repair. 15:00 Reassessment: Patient appears in no apparent distress at this time. Patient and/or ph family updated on plan of care and expected duration. Pain level reassessed. Patient is alert, oriented x 3, equal unlabored respirations, skin warm/dry/pink. 16:00 Reassessment: Patient appears in no apparent distress at this time. Patient and/or ph family updated on plan of care and expected duration. Pain level reassessed. Patient is alert, oriented x 3, equal unlabored respirations, skin warm/dry/pink. 19:40 General: pt being discharged, pt verbalized understanding of discharge instructions, as6 new prescriptions . Vital Signs: 09:38 BP 115 / 90; Pulse 122; Resp 18; Temp 97.9; Pulse Ox 95% on R/A; Weight 83.91 kg; ph Height 6 ft. 3 in. (190.50 cm); 10:10 BP 115 / 90; Pulse 114; Resp 18; Pulse Ox 94% on R/A; ph 11:28 BP 94 / 70; Pulse 114; Resp 18; Pulse Ox 100% on R/A; ph 12:30 BP 105 / 80; Pulse 107; Resp 18; Pulse Ox 96% on R/A; ph 13:30 BP 112 / 76; Pulse 98; Resp 16; Pulse Ox 94% on R/A; ph 14:30 BP 119 / 88; Pulse 101; Resp 18; Pulse Ox 95% on R/A; ph 15:30 BP 115 / 82; Pulse 107; Resp 18; Pulse Ox 94% on R/A; ph 19:41 BP 121 / 91; Pulse 88; Resp 16 S; Temp 97.8(O); Pulse Ox 100% on R/A; as6 09:38 Body Mass Index 23.12 (83.91 kg, 190.50 cm) ph Nancy Coma Score: 09:42 Eye Response: spontaneous(4). Verbal Response: oriented(5). Motor Response: obeys ph commands(6). Total: 15. ED Course: 09:37 Patient arrived in ED. ph 09:39 Reggie Sterling PA is PHCP. [facility] 09:39 aBkari Sheehan MD is Attending Physician. jm 09:41 Triage completed. ph 09:44 Arm band placed on Patient placed in an exam room, on a stretcher, on bus monitor, ph on pulse oximetry. 09:44 Placed in gown. Bed in low position. Call light in reach. Side rails up X2. Seizure ph precautions initiated. Client placed on continuous cardiac and pulse oximetry monitoring. NIBP monitoring applied. Door closed. Noise minimized. Warm blanket given. 09:50 Maria A Fitzpatrick RN is Primary Nurse. ph 10:09 Maintain EMS IV. Dressing intact. Good blood return noted. Site clean \T\ dry. Gauge \T\ ph site: 20 L hand. IV is patent, with fluids infusing freely, with good blood return, Flushed left hand with 5 ml normal saline Converted IV to saline lock on left hand. 10:16 EKG done, by ED staff, reviewed by Reggie WHEAT. jonathan 10:32 XRAY Chest (1 view) In Process Unspecified. EDMS 11:26 Elbow Right 3 View XRAY In Process Unspecified. EDMS 12:17 Freida Leavitt MD is Hospitalizing Provider. jmm 14:30 No provider procedures requiring assistance completed. Patient admitted, IV remains in ph place. 15:16 CT Traumagram (Head C Spine CAP W Con) In Process Unspecified. EDMS Administered Medications: 11:27 Drug: NS 0.9% 500 ml Route: IV; Rate: bolus; Site: left hand; ph 19:42 Follow up: Response: No adverse reaction; IV Status: Completed infusion; IV Intake: as6 500ml 12:08 Drug: Lactated Ringers Solution 1000 ml Route: IV; Rate: 500 ml/hr; Site: left hand; ph 19:41 Follow up: Response: No adverse reaction; IV Status: Completed infusion; IV Intake: as6 1000ml 12:08 Drug: Potassium Effervescent Tablet 50 mEq Route: PO; ph 19:41 Follow up: Response: No adverse reaction as6 Medication: 14:22 VIS not applicable for this client. ph Intake: 19:41 IV: 1000ml; Total: 1000ml. as6 19:42 IV: 500ml; Total: 1500ml. as6 Outcome: 12:18 Decision to Hospitalize by Provider. [facility] 19:41 Discharged to home as6 19:41 Condition: stable 19:41 Discharge instructions given to patient. 19:42 Patient left the ED. as6 Signatures: Dispatcher [employer] EDMS Reggie Sterling PA PA jmm Hall, Patricia RN RN Robert Caballero RN RN as6 Angely Meléndez [id number]
--- NOTE | 2022-06-19 12:18 | EDPHYS ---
Physician Documentation [facility] Name: Rafa Minaya Age: 66 yrs Sex: Male : 1955 Arrival Date: 06/19/2022 Time: 09:37 Bed 14 Private MD: ED Physician Bakari Sheehan HPI: 06/19 09:39 This 66 yrs old Male presents to ER via EMS with complaints of Probable Seizure, Fall jmm Injury. 09:39 The patient presents after having a single isolated seizure. Seizure onset: just prior jm to arrival. Context: the seizure(s) was witnessed, by EMS personnel. Seizure Hx: the patient has no previous seizure history. Associated injury: Right upper extremity:. EMS care: none. This is a 66 year old male with a history of htn, glaucoma that presents to the ED with complaints of right elbow pain, back pain, chest pain following a seizure which occurred while at a store. Patient states feeling dizzy. EMS witnessed approx 2 minutes of generalized seizure activity. . Historical: - Allergies: 09:42 No Known Allergies; ph - PMHx: 09:42 Glaucoma; Hypertensive disorder; ph - Immunization history:: Adult Immunizations unknown. - Social history:: Smoking status: Patient denies any tobacco usage or history of. ROS: 09:39 Constitutional: Negative for fever, chills, and weight loss. jmm 09:39 Cardiovascular: Positive for chest pain. 09:39 Back: Positive for pain at rest. 09:39 Neuro: Positive for 09:39 Neuro: Positive for seizure activity. 09:39 All other systems are negative. Exam: 09:39 Constitutional: This is a well developed, well nourished patient who is awake, alert, jmm and in no acute distress. Head/Face: atraumatic. Eyes: EOMI, no conjunctival erythema appreciated ENT: Moist Mucus Membranes Neck: Trachea midline, Supple Chest/axilla: Normal chest wall appearance and motion. Cardiovascular: Regular rate and rhythm. No edema appreciated Respiratory: Normal respirations, no respiratory distress appreciated Abdomen/GI: Non distended Back: Normal ROM 09:39 Skin: 1 cm laceration noted to the right olecranon region. 09:39 Neuro: Orientation: is normal, Mentation: is normal, Memory: is normal. 09:39 Psych: Behavior/mood is pleasant, cooperative. 10:35 ECG was reviewed by the Attending Physician. [facility] Vital Signs: 09:38 BP 115 / 90; Pulse 122; Resp 18; Temp 97.9; Pulse Ox 95% on R/A; Weight 83.91 kg; ph Height 6 ft. 3 in. (190.50 cm); 10:10 BP 115 / 90; Pulse 114; Resp 18; Pulse Ox 94% on R/A; ph 11:28 BP 94 / 70; Pulse 114; Resp 18; Pulse Ox 100% on R/A; ph 12:30 BP 105 / 80; Pulse 107; Resp 18; Pulse Ox 96% on R/A; ph 13:30 BP 112 / 76; Pulse 98; Resp 16; Pulse Ox 94% on R/A; ph 14:30 BP 119 / 88; Pulse 101; Resp 18; Pulse Ox 95% on R/A; ph 15:30 BP 115 / 82; Pulse 107; Resp 18; Pulse Ox 94% on R/A; ph 19:41 BP 121 / 91; Pulse 88; Resp 16 S; Temp 97.8(O); Pulse Ox 100% on R/A; as6 09:38 Body Mass Index 23.12 (83.91 kg, 190.50 cm) ph [place] Coma Score: 09:42 Eye Response: spontaneous(4). Verbal Response: oriented(5). Motor Response: obeys ph commands(6). Total: 15. MDM: 09:39 Patient medically screened. [facility] 12:16 Data reviewed: vital signs, nurses notes. Counseling: I had a detailed discussion with [facility] the patient and/or guardian regarding: the historical points, exam findings, and any diagnostic results supporting the discharge/admit diagnosis, lab results, radiology results, the need for further work-up and treatment in the hospital. ED course: I discussed the patient with Dr. Leavitt whom accepted the patient to his service. . 06/19 09:39 Order name: Basic Metabolic Panel; Complete Time: 11:36 [facility] 06/19 09:39 Order name: CBC with Diff; Complete Time: 13:22 [facility] 06/19 09:39 Order name: LFT's; Complete Time: 11:36 [facility] 06/19 09:39 Order name: Magnesium; Complete Time: 11:36 [facility] 06/19 09:39 Order name: NT PRO-BNP; Complete Time: 11:36 [facility] 06/19 09:39 Order name: PT-INR; Complete Time: 10:51 [facility] 06/19 09:39 Order name: Troponin HS; Complete Time: 11:36 [facility] 06/19 09:42 Order name: Acetaminophen; Complete Time: 11:13 [facility] 06/19 09:42 Order name: ETOH Level; Complete Time: 11:13 [facility] 06/19 09:42 Order name: Salicylate; Complete Time: 11:13 [facility] 06/19 09:42 Order name: Urine Drug Screen [facility] 06/19 10:54 Order name: CBC Smear Scan; Complete Time: 13:22 [facility] 06/19 11:56 Order name: SARS RAPID; Complete Time: 12:36 3 06/19 12:56 Order name: Direct Antiglobulin Test [facility] 06/19 09:39 Order name: XRAY Chest (1 view); Complete Time: 11:13 [facility] 06/19 09:39 Order name: EKG; Complete Time: 09:42 [facility] 06/19 09:39 Order name: Cardiac monitoring; Complete Time: 09:48 [facility] 06/19 10:33 Order name: Elbow Right 3 View XRAY; Complete Time: 11:36 [facility] 06/19 11:57 Order name: Diet Heart Healthy; Complete Time: 11:57 ph 06/19 12:56 Order name: Haptoglobin [facility] 06/19 12:56 Order name: Lactic Dehydrogenase [facility] 06/19 13:48 Order name: CBC with Automated Diff [facility] 06/19 13:48 Order name: Comprehensive Metabolic Panel [facility] 06/19 13:48 Order name: Magnesium [facility] 06/19 13:48 Order name: Protime (+INR) [facility] 06/19 13:48 Order name: PTT, Activated Partial Thromb [facility] 06/19 14:04 Order name: CT Traumagram (Head C Spine CAP W Con); Complete Time: 16:05 ph 06/19 09:39 Order name: EKG - Nurse/Tech; Complete Time: 10:10 [facility] 06/19 09:39 Order name: IV Saline Lock; Complete Time: 09:48 [facility] 06/19 09:39 Order name: Labs collected and sent; Complete Time: 09:48 [facility] 06/19 09:39 Order name: O2 Per Protocol; Complete Time: 09:48 [facility] 06/19 09:39 Order name: O2 Sat Monitoring; Complete Time: :48 [facility] 06/19 10:13 Order name: Labs - recollect needed: all labs hemolyzed; Complete Time: 10:37 dh3 EC:35 Rate is 113 beats/min. Rhythm is regular. QRS [place] is Normal. OH interval is normal. jmm QRS interval is normal. QT interval is normal. No Q waves. T waves are Normal. No ST changes noted. Reviewed by me. Administered Medications: 11:27 Drug: NS 0.9% 500 ml Route: IV; Rate: bolus; Site: left hand; ph 19:42 Follow up: Response: No adverse reaction; IV Status: Completed infusion; IV Intake: as6 500ml 12:08 Drug: Lactated Ringers Solution 1000 ml Route: IV; Rate: 500 ml/hr; Site: left hand; ph 19:41 Follow up: Response: No adverse reaction; IV Status: Completed infusion; IV Intake: as6 1000ml 12:08 Drug: Potassium Effervescent Tablet 50 mEq Route: PO; ph 19:41 Follow up: Response: No adverse reaction as6 Disposition Summary: 06/19/22 12:18 Hospitalization Ordered Hospitalization Status: Observation jmm Provider: Freida Leavitt [facility] jmm Condition: Stable jmm Problem: new jmm Symptoms: have improved jmm Bed/Room Type: Standard [facility] Room Assignment: jmm Diagnosis - Other seizures jmm - Chest pain, unspecified jmm - Hypo-osmolality and hyponatremia jmm - Hypokalemia jmm Forms: - Medication Reconciliation Form jmm - SBAR form jmm Signatures: Dispatcher [employer] EDReggie Wilson PA PA jmm Maria A Fitzpatrick RN RN Mansi Buckner [facility] Robert Garg RN as6
[2022-06-19] MEDS ORDERED: IBUPROFEN 200 MG TAB PO ONE (12:19)
[2022-06-19] MEDS ORDERED: IBUPROFEN 400 MG TAB ONE (12:20)
[2022-06-19 12:26] LABS: SARS-CoV-2 Antigen Rapid Res Negative (Negative)
[2022-06-19] MEDS ORDERED: NA CHLORIDE 0.9% 1,000 ML IV ONE (13:00)
[2022-06-19 13:14] LABS: Platelet Estimate ADEQ
--- NOTE | 2022-06-19 13:46 | P.SSS ---
Patient History Date of Service: 06/19/22 Reason for admission: ? Seizure disorder Allergies No Known Allergies Allergy (Verified 07/04/20 23:10) Home Medications: Bimatoprost [Lumigan Opthalmic Drops*] 1 drop EACH EYE BEDTIME 07/05/20 Codeine/APAP [Tylenol #3*] 1 tab PO Q6HP PRN #14 tab 07/06/20 Cyclobenzaprine HCl [Flexeril] 5 mg PO Q12H PRN #20 tablet 07/06/20 Pantoprazole [Protonix Tab*] 40 mg PO DAILY #10 tab 07/06/20 Ensure High Protein 237 ml PO BID #60 can 07/17/20 Levetiracetam [Keppra] 500 mg PO Q12H #60 06/19/22 chlordiazePOXIDE HCl [Chlordiazepoxide HCl] 5 mg PO TID #60 06/19/22 chlordiazePOXIDE HCl [Librium*] 5 mg PO TID #70 cap 06/19/22 - Past Medical/Surgical History Diabetic: No -: Glaucoma -: Inguinal hernia -: L knee - meniscus repair Psychosocial/ Personal History: Patient lives alone. - Family History father -: Heart disease - Social History Smoking Status: Former smoker Alcohol use: No CD- Drugs: No Caffeine use: No Review of Systems 10-point ROS is otherwise unremarkable Physical Examination - Vital Signs Temperature: 98 F Blood Pressure: 120/80 Pulse: 80 Respirations: 18 Pulse Ox (%): 95 - Physical Exam General: Alert, In no apparent distress, Oriented x3 HEENT: Atraumatic, PERRLA, Mucous membr. moist/pink, EOMI, Sclerae nonicteric Neck: Supple, 2+ carotid pulse no bruit, No LAD, Without JVD or thyroid abnormality Respiratory: Clear to auscultation bilaterally, Normal air movement Cardiovascular: Regular rate/rhythm, Normal S1 S2 Gastrointestinal: Normal bowel sounds, Soft and benign, Non-distended, No tenderness Musculoskeletal: No clubbing, No swelling, No tenderness Integumentary: No rashes Neurological: Normal gait, Normal speech, Normal strength at 5/5 x4 extr, Normal tone, Sensation intact, Cranial nerves 3-12 intact, Normal affect Lymphatics: No axilla or inguinal lymphadenopathy - Studies Laboratory Data (last 24 hrs) 06/19/22 10:30: PT 13.1 H, INR 1.19 06/19/22 10:30: WBC 5.9, Hgb 15.6, Hct 45.4, Plt Count 83 L 06/19/22 10:30: Sodium 129 L, Potassium 3.0 L, BUN 7, Creatinine 1.31 H, Glucose 90, Magnesium 1.9, Total Bilirubin 2.3 H, AST 90 H, ALT 78, Alkaline Phosphatase 110 - Diagnosis (Problem(s)) (1) Seizure Current Visit: Yes Status: Acute (2) Total bilirubin, elevated Current Visit: Yes Status: Acute Treatment Summary: Patient is clinically doing well. Patient's symptoms are much better. Patient will be discharged on antiepileptics. Patient will follow-up with neurology as an outpatient. Patient will need to see PCP to repeat labs in 1 week. At this time, patient is stable for discharge home. - Disposition Discharge Date: 06/19/22 Disposition: ROUTINE DISCHARGE Condition: GOOD Prescriptions: chlordiazePOXIDE HCl [Chlordiazepoxide HCl] 5 mg PO TID #60 Levetiracetam [Keppra] 500 mg PO Q12H #60 chlordiazePOXIDE HCl [Librium*] 5 mg PO TID #70 cap Followup: Leobardo Manzanares MD [Primary Care Provider] - Prvt As Needed Patient Discharge Instructions: -DC IV and DC home. -Follow-up with PCP in 1 to 2 weeks. -Follow-up with Neurology in 1 to 2 weeks. -Please call Dr. Leavitt at [phone] if any questions regarding hospital stay. -Please call nursing station at [phone] if any nursing or medication questions. -Return to the emergency room if symptoms worsen Diet: Regular Activity: Fall precautions Critical Care: No Time Spent Managing Pts Care (In Minutes): 45
--- NOTE | 2022-06-19 15:40 | RAD REPORT ---
EXAM DESCRIPTION: CT - Head C Spine Cap Mary Syed - 06/19/2022 3:14 pm CLINICAL HISTORY: Head and neck injury with chest and abdominal pain status post fall. Head and neck pain . TECHNIQUE: Computed axial tomography of the head and cervical spine was obtained Computed axial tomography of the chest, abdomen and pelvis was obtained. 100 cc Isovue-300 was given intravenously coronal and sagittal reconstruction was performed. All CT scans are performed using dose optimization technique as appropriate and may include automated exposure control or mA/KV adjustment according to patient size. COMPARISON: 2019 FINDINGS: An intracranial bleed is not seen. The ventricles are normal in caliber. An extra-axial fl uid collection is not noted. Fluid within the sinuses is not seen A cervical fracture is not seen. No dislocation is seen. A mediastinal hematoma is not noted. A pleural effusion is not present. A lung contusion is not seen. Nondisplaced fractures left seventh, eighth and ninth lateral ribs. Mildly displaced fracture left p osterior tenth rib. The liver, spleen, pancreas, adrenals, kidneys and bladder do not demonstrate a traumatic injury Fatty liver. Cholelithiasis. No gallbladder wall thickening Chronic compression fracture T12 vertebral body IMPRESSION: No acute intracranial abnormality is seen A cervical fracture is not visualized. If the patient continues have symptoms to suggest intracranial /spinal cord pathology then MRI would be recommended. Several left rib fractures appear more subacute than acute. Clinical correlation is needed. No acute traumatic injury involving the abdomen/pelvis seen
[2022-06-19 18:13] VITALS: BMI 23.1
[2022-06-19 20:34] VITALS: TEMP 98
[2022-06-19 20:51] VITALS: O2SAT 100
[2022-06-19 20:54] VITALS: BP 126/61
--- NOTE | 2022-06-22 08:23 | EKG ---
Test Date: 2022-06-19 Test Time: 10:16:07 Engineer Automated Equipment: MB MEASUREMENT RESULTS: Intervals: Rate: 113 WI: 168 QRSD: 84 QT: 350 QTc: 480 [place]: P: 63 WI: 168 QRS: 67 T: 50 INTERPRETIVE STATEMENTS: Sinus tachycardia with occasional premature ventricular complexes Otherwise normal ECG Compared to ECG 07/04/2020 13:59:36 Ventricular premature complex(es) now present Sinus rhythm no longer present Electronically Signed On 06-22-22 08:12:36 CDT by Kulwant Cárdenas
== END 2022-06-19 19:36 | disposition home health service (06) ==
LOC: ER 09:20 → ERHOLD 17:54
PROVIDERS: ADMIT Hospitalist; ATTEND Hospitalist
DX: R56.9 Unspecified convulsions (principal); W19.XXXA Unspecified fall, initial encounter; Y92.89 Other specified places as the place of occurrence of the external cause; R17 Unspecified jaundice; R07.9 Chest pain, unspecified; E87.6 Hypokalemia; E87.1 Hypo-osmolality and hyponatremia; H40.9 Unspecified glaucoma; Z87.891 Personal history of nicotine dependence; Z79.899 Other long term (current) drug therapy; Z20.822 Contact with and (suspected) exposure to COVID-19; Z82.49 Family history of ischemic heart disease and other diseases of the circulatory system
CPT/HCPCS: 96361; 93005; 85025; 80048; 36415; 80320; 83735; 80329 ×2; 85610; 80076; 84484; 83880; 70450; 72125; 71260; 74177; 71045; 73080; 96360; 99284; 87811; Q9967; J7120; J7040; G0378 ×2